=== PATIENT | male | born 1960 | race Two or more races ===

== ENCOUNTER 2019-07-18 21:47 | Inpatient (IN) | payer MEDICAID ==
[~2019-07-18] VITALS: Ht 182.9 cm; Wt 72.6 kg
--- NOTE | 2019-07-18 21:50 | NUR ---
ED Nurse Note: brought in by ambulance ap[facility] from [facility] c/o lethargy and congestion. per ems, pt spo2 77% at arrival. pt then placed on NRB with spo2 of 90%. pt is dnr. patient opens eyes spontaneously and withdraws to pain, oriented x0. presents with no acute distress. pt dressed in gown; attached to monitor; all safety measures met. pt is warm to touch. assesed temp; 103.6F rectal.
[2019-07-18] MEDS ORDERED: Acetaminophen 650 MG SUPP RECTAL ONE (22:00)
[2019-07-18] MEDS ORDERED: KEPPRA1000 MG ORAL (22:02)
[2019-07-18] MEDS ORDERED: PROTONIX40 MG ORAL (22:02)
[2019-07-18] MEDS ORDERED: ACETAMINOPHEN325 M1 ORAL (22:02)
[2019-07-18] MEDS ORDERED: ATORVASTATIN CA80 MG ORAL (22:02)
[2019-07-18] MEDS ORDERED: AMITRIPTYLINE75 MG ORAL (22:02)
[2019-07-18] MEDS ORDERED: RESTORIL15 MG ORAL (22:02)
[2019-07-18] MEDS ORDERED: ASPIRIN325 MG ORAL (22:02)
[2019-07-18] MEDS ORDERED: LOVENOX10 M4 SUBQ (22:02)
[2019-07-18] MEDS ORDERED: NAMENDA5 MG ORAL (22:02)
[2019-07-18] MEDS ORDERED: GABAPENTIN300 MG ORAL (22:02)
[2019-07-18] MEDS ORDERED: LOPRESSOR HCT1 EAC3 ORAL (22:02)
[2019-07-18] MEDS ORDERED: PLAVIX75 MG ORAL (22:02)
[2019-07-18] MEDS ORDERED: HUMULIN R100 UNIT/1 SUBQ (22:02)
[2019-07-18] MEDS ORDERED: TRAMADOL HCL50 MG ORAL (22:02)
[2019-07-18] MEDS ORDERED: METFORMIN HCL500 M1 ORAL (22:02)
--- NOTE | 2019-07-18 22:05 | Emergency Room Report ---
History of Present Illness General Chief Complaint: Altered Mental Status Source: Family Member, Medical Record, EMS Present Illness HPI This a 59-year-old male who has a history of CVA with left-sided weakness. He presents from care home with chief complaint of congestion and altered mental status. Onset for 1 to 2 days. No reported fever. Oxygenation was low. EMS, room air oxygenation was in the high 70 percentile. They placed him on nonrebreather. Patient appeared to be congested. Unable to get any history from this patient because of his condition. History is from EMS, care home note and family who called. Allergies: Coded Allergies: No Known Allergies (Unverified , 07/18/19) COVID-19 Screening Contact w/high risk pt: No Recent Travel to affected area: No Experienced COVID-19 symptoms?: Yes COVID-19 symptoms experienced: Flu-Like Symptoms Patient History Past Medical History: see triage record, old chart reviewed Past Surgical History: other Pertinent Family History: none Social History: Denies: smoking Immunizations: other Reviewed Nursing Documentation: PMH: Agreed; PSxH: Agreed Nursing Documentation-PMH Hx Hypertension: Yes - anemia, hyperlipidemia Hx Diabetes: Yes Hx Gastrointestinal Problems: Yes - GERD Hx Cerebrovascular Accident: Yes - encephalopathy Hx Seizures: Yes Review of Systems Respiratory: Reports: cough, shortness of breath All Other Systems: limited - Secondary to condition Physical Exam Vital Signs Date Time Temp Pulse Resp B/P (MAP) Pulse Ox O2 Delivery O2 Flow Rate FiO2 07/18/19 21:47 99.9 110 22 100/59 (73) 90 Non-Rebreather 15.0 Vitals with hypoxia and low-grade fever Sp02 EP Interpretation: abnormal General Appearance: moderate distress, Stupor Head: normocephalic, atraumatic Eyes: bilateral eye PERRL, bilateral eye EOMI ENT: dry mucus membranes Neck: full range of motion, supple, no meningismus Respiratory: chest non-tender, rhonchi Cardiovascular #1: regular rate, rhythm, no murmur Gastrointestinal: normal bowel sounds, non tender, no mass, no organomegaly, no bruit, non-distended Musculoskeletal: no lower extremity edema Neurologic: other - Left-sided weakness Procedures Critical Care Time Critical Care Time Critical care is mandated in this patient who presented with acute respiratory failure and sepsis. Patient also suspected with infection. Patient require my urgent intervention to attenuate the risks of respiratory and metabolic collapse which may lead to cardiovascular collapse and . Critical care time is 35 minutes excluding any reportable procedure. Critical care time included evaluation, multiple reevaluation, looking at old charts, interpreting laboratory and diagnostic data, discussing case with patient and family and consultants, and charting. Medical Decision Making Diagnostic Impression: Primary Impression: Suspected COVID-19 virus infection Additional Impressions: HCAP (healthcare-associated pneumonia) Sepsis Qualified Codes: A41.9 - Sepsis, unspecified organism; R65.20 - Severe sepsis without septic shock; N17.9 - Acute kidney failure, unspecified Respiratory failure with hypoxia Qualified Codes: J96.01 - Acute respiratory failure with hypoxia ARF (acute renal failure) Qualified Codes: N17.9 - Acute kidney failure, unspecified Dehydration Hyperglycemia due to type 2 diabetes mellitus Qualified Codes: E11.65 - Type 2 diabetes mellitus with hyperglycemia; Z79.4 - assisted (current) use of insulin ER Course Patient presents with respiratory distress and acute respiratory failure. He had a temperature of 103.6 rectally. Pulse oxing was very low. Chest x-ray is pretty unremarkable other than for mild bilateral interstitial infiltrates. Based on his symptoms and laboratory data, I suspect that he has COVID-19 respiratory viral infection. Nasal swab sent for confirmation. Wide spectrum antibiotics given for HCAP. Based on this patient pre-existing medical condition, prognosis is poor. I discussed the case with his family. I also discussed the case with Dr. Basilio who will admit. EKG Diagnostic Results Rate: tachycardiac Rhythm: NSR ST Segments: other - NSST changes Rhythm Strip Diag. Results EP Interpretation: yes Rate: 130 Rhythm: NSR, no PVC's, no ectopy Chest X-Ray Diagnostic Results Chest X-Ray Diagnostic Results : Chest X-Ray Ordered: Yes # of Views/Limited/Complete: 1 View Indication: Shortness of Breath EP Interpretation: Yes Interpretation: no effusion, no pneumothorax, other - b/l interstitial infiltrates Impression: Other - b/l interstitial infiltrates; atelectasis Electronically Signed by: Taurus Sheldon MD Last Vital Signs Date Time Temp Pulse Resp B/P (MAP) Pulse Ox O2 Delivery O2 Flow Rate FiO2 07/18/19 21:47 99.9 110 22 100/59 (73) 90 Non-Rebreather 15.0 Status: improved Disposition: ADMITTED INPATIENT Condition: Critical Taurus Sheldon MD Jul 18, 2019 22:04
[2019-07-18 22:30] VITALS: BP 100/59
--- NOTE | 2019-07-18 22:30 | NUR ---
ED Nurse Note: iv access established. blood, initial lactic, blood culture, flu vre cre mrsa covid19 swab, urine collected; sent down to lab. upon skin assessment, several skin tears noted but no pressure sores noted.
[2019-07-18 23:00] VITALS: BP 109/70
--- NOTE | 2019-07-18 23:14 | NUR ---
ED Nurse Note: imaging done at bedside
[2019-07-18] MEDS ORDERED: Cefepime HCl 1 GM in D5W 55 ML IVPB ONE (23:30)
[2019-07-18 23:37] LABS: ANION GAP 16 mmol/L (5-15); BLOOD UREA NITROGEN 63 mg/dL (7-18); CALCIUM 9.8 MG/DL (8.5-10.1); CARBON DIOXIDE 23 MMOL/L (21-32); CHLORIDE 111 MMOL/L (98-107); CREATININE 2.3 MG/DL (0.55-1.30); POTASSIUM 4.4 MMOL/L (3.5-5.1); SODIUM 150 MMOL/L (136-145)
[2019-07-18 23:38] LABS: BASOPHILS % (AUTO) 1.7 % (0.0-2.0); EOSINOPHILS % (AUTO) 0.1 % (0.0-3.0); HEMATOCRIT 47.9 % (42.0-52.0); HEMOGLOBIN 16.9 G/DL (14.2-18.0); LYMPHOCYTES % (AUTO) 25.4 % (20.0-45.0); MEAN CORPUSCULAR VOLUME 85 FL (80-99); MONOCYTES % (AUTO) 8.5 % (1.0-10.0); NEUTROPHILS % (AUTO) 64.3 % (45.0-75.0); PLATELET COUNT 271 K/UL (150-450); RED BLOOD COUNT 5.61 M/UL (4.70-6.10); RED CELL DISTRIBUTION WIDTH 11.6 % (11.6-14.8); WHITE BLOOD COUNT 17.6 K/UL (4.8-10.8)
[2019-07-18 23:39] LABS: APPEARANCE,URINE CLEAR; BILIRUBIN, URINE 2+ (NEGATIVE); GLUCOSE, URINE (UA) 2+ (NEGATIVE); KETONES,URINE 2+ (NEGATIVE); LEUKOCYTE ESTERASE ,URINE 1+ (NEGATIVE); NITRITE,URINE NEGATIVE (NEGATIVE); PH,URINE 5 (4.5-8.0); PROTEIN,URINE 3+ (NEGATIVE); UROBILINOGEN,URINE 4 MG/DL (0.0-1.0)
[2019-07-18 23:42] LABS: ALANINE AMINOTRANSFERASE 35 U/L (12-78); ALBUMIN 3.5 G/DL (3.4-5.0); ALBUMIN/GLOBULIN RATIO 0.6 (1.0-2.7); ALKALINE PHOSPHATASE 150 U/L (46-116); ASPARTATE AMINO TRANSFERASE 27 U/L (15-37); BILIRUBIN,TOTAL 0.4 MG/DL (0.2-1.0)
[2019-07-18 23:44] LABS: COLOR,URINE PALE YELLOW
--- NOTE | 2019-07-18 23:57 | NUR ---
ED Nurse Note: lactic reflex collected; sent down to lab. temp reassessed 101.8F rectal.
[2019-07-19] VITALS (9 sets, daily range): BP systolic 97–133; BP diastolic 68–90
[2019-07-19] MEDS ORDERED: Albuterol/Ipratropium 3ml neb HHN PRN
--- NOTE | 2019-07-19 00:01 | Emergency Room Report ---
Sepsis Event Note Evaluation Current Stage of Sepsis: Sepsis Possible Source: Pulmonary Focused Exam Allergies: Coded Allergies: No Known Allergies (Unverified , 07/18/19) Date Exam Occurred: Jul 19, 2019 Time Exam Occurred: 00:01 Laboratory Studies Laboratory Tests Test 07/18/19 21:55 07/18/19 23:21 White Blood Count 17.6 K/UL (4.8-10.8) H Red Blood Count 5.61 M/UL (4.70-6.10) Hemoglobin 16.9 G/DL (14.2-18.0) Hematocrit 47.9 % (42.0-52.0) Mean Corpuscular Volume 85 FL (80-99) Mean Corpuscular Hemoglobin 30.2 PG (27.0-31.0) Mean Corpuscular Hemoglobin Concent 35.3 G/DL (32.0-36.0) Red Cell Distribution Width 11.6 % (11.6-14.8) Platelet Count 271 K/UL (150-450) Mean Platelet Volume 8.7 FL (6.5-10.1) Neutrophils (%) (Auto) 64.3 % (45.0-75.0) Lymphocytes (%) (Auto) 25.4 % (20.0-45.0) Monocytes (%) (Auto) 8.5 % (1.0-10.0) Eosinophils (%) (Auto) 0.1 % (0.0-3.0) Basophils (%) (Auto) 1.7 % (0.0-2.0) Sodium Level 150 MMOL/L (136-145) H Potassium Level 4.4 MMOL/L (3.5-5.1) Chloride Level 111 MMOL/L (98-107) H Carbon Dioxide Level 23 MMOL/L (21-32) Anion Gap 16 mmol/L (5-15) H Blood Urea Nitrogen 63 mg/dL (7-18) H Creatinine 2.3 MG/DL (0.55-1.30) H Estimat Glomerular Filtration Rate 29.2 mL/min (>60) Glucose Level 323 MG/DL (74-106) H Lactic Acid Level 2.90 mmol/L (0.4-2.0) H Calcium Level 9.8 MG/DL (8.5-10.1) Total Bilirubin 0.4 MG/DL (0.2-1.0) Aspartate Amino Transf (AST/SGOT) 27 U/L (15-37) Alanine Aminotransferase (ALT/SGPT) 35 U/L (12-78) Alkaline Phosphatase 150 U/L (46-116) H Total Protein 8.9 G/DL (6.4-8.2) H Albumin 3.5 G/DL (3.4-5.0) Globulin 5.4 g/dL Albumin/Globulin Ratio 0.6 (1.0-2.7) L Urine Color Pale yellow Urine Appearance Clear Urine pH 5 (4.5-8.0) Urine Specific [place] 1.020 (1.005-1.035) Urine Protein 3+ (NEGATIVE) H Urine Glucose (UA) 2+ (NEGATIVE) H Urine Ketones 2+ (NEGATIVE) H Urine Blood Negative (NEGATIVE) Urine Nitrite Negative (NEGATIVE) Urine Bilirubin 2+ (NEGATIVE) H Urine Ictotest Pending Urine Urobilinogen 4 MG/DL (0.0-1.0) H Urine Leukocyte Esterase 1+ (NEGATIVE) H Urine RBC 0-2 /HPF (0 - 0) H Urine WBC 0-2 /HPF (0 - 0) Urine Squamous Epithelial Cells None /LPF (NONE/OCC) Urine Bacteria Few /HPF (NONE) Urine Fine Granular Casts 5-10 /LPF (NONE) H Vital Signs Last 24 Hour Vital Signs Date Time Temp Pulse Resp B/P (MAP) Pulse Ox O2 Delivery O2 Flow Rate FiO2 07/18/19 22:30 101.8 07/18/19 21:47 99.9 110 22 100/59 (73) 90 Non-Rebreather 15.0 Respiratory Exam: Rhonchi Cardiovascular Exam: RRR, Tachycardia Capillary Refill: Less Than 2 Seconds Peripheral Pulse: Strong Pulse Location: Radial Skin Exam: Unremarkable Taurus Sheldon MD Jul 19, 2019 00:01
--- NOTE | 2019-07-19 02:00 | NUR ---
ED Nurse Note: PATIENT SLEEPING IN BED WITH NO ACUTE DISTRESS. REPOSTIONED FOR COMFORT. RESPIRATIONS EVEN AND UNLABORED.
--- NOTE | 2019-07-19 03:00 | NUR ---
ED Nurse Note: TRANSFERRED PATIENT FROM ED [facility] TO [facility] BED. PT TOLERATED WELL; REMAINS FREE FROM INJURY. PATIENT RESTING IN BED WITH NO ACUTE DISTRESS. VSS. IV FLUSHED AND PATENT. SIDE RAILS RAISED X3; BED ALARM SET; BED LOCKED AT LOWEST POSITION.
--- NOTE | 2019-07-19 05:00 | NUR ---
ED Nurse Note: AM LABS DRAWN; SENT DOWN TO LAB. REPOSITIONED PATIENT FOR COMFORT; EASED PRESSURE OFF BONY PROMICES.
[2019-07-19 05:17] LABS: BASOPHILS % (AUTO) 1.1 % (0.0-2.0); EOSINOPHILS % (AUTO) 0.1 % (0.0-3.0); HEMATOCRIT 38.8 % (42.0-52.0); LYMPHOCYTES % (AUTO) 26.2 % (20.0-45.0); MEAN CORPUSCULAR VOLUME 87 FL (80-99); MONOCYTES % (AUTO) 9.8 % (1.0-10.0); NEUTROPHILS % (AUTO) 62.8 % (45.0-75.0); PLATELET COUNT 167 K/UL (150-450); RED BLOOD COUNT 4.48 M/UL (4.70-6.10); RED CELL DISTRIBUTION WIDTH 11.7 % (11.6-14.8); WHITE BLOOD COUNT 17.8 K/UL (4.8-10.8)
[2019-07-19 05:20] LABS: ANION GAP 16 mmol/L (5-15); BLOOD UREA NITROGEN 52 mg/dL (7-18); CALCIUM 8.2 MG/DL (8.5-10.1); CARBON DIOXIDE 20 MMOL/L (21-32); CHLORIDE 118 MMOL/L (98-107); CREATININE 1.6 MG/DL (0.55-1.30); POTASSIUM 3.8 MMOL/L (3.5-5.1); SODIUM 154 MMOL/L (136-145)
--- NOTE | 2019-07-19 06:05 | NUR ---
ED Nurse Note: PATIENT RESTING IN BED WITH NO ACUTE DISTRESS. RESPONDS TO NAME AND PRESENTS WITH PURPOSEFUL MOVEMENT; ABLE TO ANSWER QUESTIONS. AO2.
--- NOTE | 2019-07-19 07:12 | NUR ---
HAND-OFF: Report given to MILES BENJAMIN. ENDORSED PLAN OF CARE.
[2019-07-19] MEDS: Enoxaparin 40mg Inj SUBQ SCH (09:15)
[2019-07-19] MEDS ORDERED: traMADol 50mg tab ORAL PRN (09:30)
[2019-07-19] MEDS ORDERED: Cefepime 2gm IV SCH (11:00)
--- NOTE | 2019-07-19 11:18 | Diagnostic Imaging Report ---
Indication: Dyspnea Comparison: None A single view chest radiograph was obtained. Findings: Cardiomediastinal appearance is within normal limits for age. The lungs are clear. Pulmonary vascularity is appropriate. The diaphragmatic contour is smooth and costophrenic angles are sharp. No pleural effusions are identified. The bones are osteopenic. Impression: No acute findings
[2019-07-19] MEDS: NovoLOG Insulin Flexpen SUBQ SCH ×3 (11:30→20:58)
--- NOTE | 2019-07-19 11:53 | History and Physical ---
History of Present Illness General Date patient seen: Jul 19, 2019 Time patient seen: 10:20 Reason for Hospitalization: Altered Mental Status Present Illness HPI 59 y/o M known to me from [facility] where he is a resident since being admitted after a CVA with L sided hemiplegia as a sequelae. He has diabetes mellitus and takes insulin along with metformin, HTN, HLD, physical deconditioning. He was sent to the ED last night with fever and altered mental status. He was admitted to the hospital with leukocytosis, sepsis, started on isolation- droplet precautions, rule out COVID-19, and antibiotic therapy. Today, he is in moderate distress, fever has improved, his oxygenation requirements are less now with NC 2 lt and he is waiting for a FILIBERTO bed. Denies chest pain, shortness of breath, nausea, emesis, diarrhea, abdominal pain. Allergies: Coded Allergies: No Known Allergies (Unverified , 07/18/19) COVID-19 Screening Contact w/high risk pt: No Recent Travel to affected area: No Experienced COVID-19 symptoms?: Yes COVID-19 symptoms experienced: Flu-Like Symptoms Medication History Scheduled Amitriptyline HCl (Elavil*), 150 MG ORAL BEDTIME, (Reported) Aspirin* (Aspirin*), 325 MG ORAL DAILY, (Reported) Atorvastatin Calcium* (Lipitor*), 80 MG ORAL BEDTIME, (Reported) Clopidogrel Bisulfate* (Plavix*), 75 MG ORAL DAILY, (Reported) Enoxaparin* (Lovenox*), 40 MG SUBQ DAILY, (Reported) Gabapentin* (Gabapentin*), 300 MG ORAL THREE TIMES A DAY, (Reported) Levetiracetam (Keppra), 1,000 MG ORAL DAILY, (Reported) Memantine Hcl* (Namenda*), 5 MG ORAL DAILY, (Reported) Metformin Hcl* (Metformin Hcl*), 500 MG ORAL TWICE A DAY, (Reported) Metoprolol/Hydrochlorothiazide (Lopressor Hct 50-25 Tablet), 1 TAB ORAL DAILY, ( Reported) Pantoprazole* (Protonix*), 40 MG ORAL DAILY, (Reported) Scheduled PRN Acetaminophen* (Acetaminophen 325MG Tablet*), 325 MG ORAL Q4H PRN for For Pain, (Reported) Temazepam* (Restoril*), 15 MG ORAL BEDTIME PRN for Insomnia, (Reported) Tramadol Hcl* (Ultram*), 50 MG ORAL Q6H PRN for For Pain, (Reported) Miscellaneous Medications Insulin Regular, Human (Humulin R), 0 SUBQ, (Reported) Patient History Healthcare decision maker Resuscitation status Do Not Resuscitate Advanced Directive on File Review of Systems Constitutional: Reports: no symptoms Eye: Reports: no symptoms ENT: Reports: no symptoms Respiratory: Reports: no symptoms, shortness of breath Cardiovascular: Reports: no symptoms Gastrointestinal: Reports: no symptoms Genitourinary: Reports: no symptoms Musculoskeletal: Reports: no symptoms Skin: Reports: no symptoms Psychiatric: Reports: no symptoms Neurological: Reports: no symptoms Endocrine: Reports: no symptoms Hematologic/Lymphatic: Reports: no symptoms All Other Systems: negative except mentioned in HPI Physical Exam General Appearance: WD/WN Lines, tubes and drains: peripheral HEENT: normocephalic Neck: non-tender Respiratory/Chest: chest wall non-tender, lungs clear Abdomen: normal bowel sounds, non tender 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 Last 24 Hour Vital Signs Date Time Temp Pulse Resp B/P (MAP) Pulse Ox O2 Delivery O2 Flow Rate FiO2 07/19/19 10:14 110 19 123/76 100 Room Air 07/19/19 06:00 99.9 114 19 132/82 100 Room Air 15.0 07/19/19 04:00 99.9 116 19 104/75 98 Room Air 07/19/19 02:00 101.8 117 18 101/68 100 Room Air 07/19/19 00:00 101.8 129 22 97/73 100 Room Air 07/18/19 23:00 101.8 143 24 109/70 99 Room Air 07/18/19 22:30 101.8 135 22 100/59 98 Room Air 07/18/19 22:30 110 22 Non-Rebreather 15.0 07/18/19 22:30 101.8 07/18/19 21:47 99.9 110 22 100/59 (73) 90 Non-Rebreather 15.0 Laboratory Tests Test 07/18/19 12:40 07/18/19 21:55 07/18/19 23:21 07/19/19 05:10 Lactic Acid Level 2.80 mmol/L (0.66-2.22) H 2.90 mmol/L (0.4-2.0) H White Blood Count 17.6 K/UL (4.8-10.8) H 17.8 K/UL (4.8-10.8) H Red Blood Count 5.61 M/UL (4.70-6.10) 4.48 M/UL (4.70-6.10) L Hemoglobin 16.9 G/DL (14.2-18.0) 13.0 G/DL (14.2-18.0) L Hematocrit 47.9 % (42.0-52.0) 38.8 % (42.0-52.0) L Mean Corpuscular Volume 85 FL (80-99) 87 FL (80-99) Mean Corpuscular Hemoglobin 30.2 PG (27.0-31.0) 29.1 PG (27.0-31.0) Mean Corpuscular Hemoglobin Concent 35.3 G/DL (32.0-36.0) 33.6 G/DL (32.0-36.0) Red Cell Distribution Width 11.6 % (11.6-14.8) 11.7 % (11.6-14.8) Platelet Count 271 K/UL (150-450) 167 K/UL (150-450) Mean Platelet Volume 8.7 FL (6.5-10.1) 8.7 FL (6.5-10.1) Neutrophils (%) (Auto) 64.3 % (45.0-75.0) 62.8 % (45.0-75.0) Lymphocytes (%) (Auto) 25.4 % (20.0-45.0) 26.2 % (20.0-45.0) Monocytes (%) (Auto) 8.5 % (1.0-10.0) 9.8 % (1.0-10.0) Eosinophils (%) (Auto) 0.1 % (0.0-3.0) 0.1 % (0.0-3.0) Basophils (%) (Auto) 1.7 % (0.0-2.0) 1.1 % (0.0-2.0) Sodium Level 150 MMOL/L (136-145) H 154 MMOL/L (136-145) H Potassium Level 4.4 MMOL/L (3.5-5.1) 3.8 MMOL/L (3.5-5.1) Chloride Level 111 MMOL/L (98-107) H 118 MMOL/L (98-107) H Carbon Dioxide Level 23 MMOL/L (21-32) 20 MMOL/L (21-32) L Anion Gap 16 mmol/L (5-15) H 16 mmol/L (5-15) H Blood Urea Nitrogen 63 mg/dL (7-18) H 52 mg/dL (7-18) H Creatinine 2.3 MG/DL (0.55-1.30) H 1.6 MG/DL (0.55-1.30) H Estimat Glomerular Filtration Rate 29.2 mL/min (>60) 44.5 mL/min (>60) Glucose Level 323 MG/DL (74-106) H 287 MG/DL (74-106) H Calcium Level 9.8 MG/DL (8.5-10.1) 8.2 MG/DL (8.5-10.1) L Total Bilirubin 0.4 MG/DL (0.2-1.0) Aspartate Amino Transf (AST/SGOT) 27 U/L (15-37) Alanine Aminotransferase (ALT/SGPT) 35 U/L (12-78) Alkaline Phosphatase 150 U/L (46-116) H Total Protein 8.9 G/DL (6.4-8.2) H Albumin 3.5 G/DL (3.4-5.0) Globulin 5.4 g/dL Albumin/Globulin Ratio 0.6 (1.0-2.7) L Urine Color Pale yellow Urine Appearance Clear Urine pH 5 (4.5-8.0) Urine Specific [place] 1.020 (1.005-1.035) Urine Protein 3+ (NEGATIVE) H Urine Glucose (UA) 2+ (NEGATIVE) H Urine Ketones 2+ (NEGATIVE) H Urine Blood Negative (NEGATIVE) Urine Nitrite Negative (NEGATIVE) Urine Bilirubin 2+ (NEGATIVE) H Urine Ictotest Negative (NEGATIVE) Urine Urobilinogen 4 MG/DL (0.0-1.0) H Urine Leukocyte Esterase 1+ (NEGATIVE) H Urine RBC 0-2 /HPF (0 - 0) H Urine WBC 0-2 /HPF (0 - 0) Urine Squamous Epithelial Cells None /LPF (NONE/OCC) Urine Bacteria Few /HPF (NONE) Urine Fine Granular Casts 5-10 /LPF (NONE) H Hemoglobin A1c 8.9 % (4.3-6.0) H Microbiology Date/Time Source Procedure Growth Status 07/18/19 22:30 Nasal Nares - Final Complete 07/18/19 22:30 Nasal Nares - Final Complete 07/18/19 22:30 Rectum Received Height (Feet): 6 Height (Inches): 0.00 Weight (Pounds): 160 Medications Current Medications Medications (Trade) Dose Ordered Sig/Amy Route PRN Reason Start Time Stop Time Status Last Admin Dose Admin Acetaminophen (Tylenol) 650 mg Q4H PRN ORAL Mild Pain (Pain Scale 1-3) 07/19/19 00:00 08/18/19 00:00 Albuterol/ Ipratropium (Albuterol/ Ipratropium) 3 ml Q4H PRN HHN Shortness of Breath 07/19/19 00:00 07/24/19 00:00 Aspirin (ASA) 325 mg DAILY ORAL 07/20/19 09:00 09/03/19 08:59 UNV Atorvastatin Calcium (Lipitor) 80 mg BEDTIME ORAL 07/19/19 21:00 10/17/19 20:59 UNV Cefepime HCl 2 gm/ Dextrose 55 ml @ 110 mls/hr Q24H IV 07/19/19 14:00 07/26/19 13:59 Clopidogrel Bisulfate (Plavix) 75 mg DAILY ORAL 07/20/19 09:00 08/19/19 08:59 UNV Dextrose (Dextrose 50%) 25 ml Q30M PRN IV Hypoglycemia 07/19/19 00:00 10/17/19 00:00 Dextrose (Dextrose 50%) 50 ml Q30M PRN IV Hypoglycemia 07/19/19 00:00 10/17/19 00:00 Enoxaparin Sodium (Lovenox) 40 mg Q24H SUBQ 07/19/19 09:00 10/17/19 08:59 07/19/19 09:15 Gabapentin (Neurontin) 300 mg THREE TIMES A DAY ORAL 07/19/19 13:00 08/18/19 12:59 UNV Insulin Aspart (NovoLOG) BEFORE MEALS AND HS SUBQ 07/19/19 11:30 10/17/19 11:29 UNV Levetiracetam (Keppra) 1,000 mg DAILY ORAL 07/20/19 09:00 08/19/19 08:59 UNV Levofloxacin (Levaquin) 750 mg ONCE ONCE ORAL 07/19/19 00:00 07/19/19 00:01 UNV Memantine (Namenda) 5 mg DAILY ORAL 07/20/19 09:00 08/19/19 08:59 UNV Metformin HCl (Glucophage) 500 mg TWICE A DAY ORAL 07/19/19 18:00 08/18/19 17:59 UNV Ondansetron HCl (Zofran) 4 mg Q6H PRN IVP Nausea & Vomiting 07/19/19 00:00 08/18/19 00:00 Pantoprazole (Protonix) 40 mg DAILY ORAL 07/19/19 09:00 08/18/19 08:59 07/19/19 09:14 Sodium Chloride 1,000 ml @ 100 mls/hr ADJUST PER PROTOCOL IV 07/19/19 00:00 08/18/19 00:00 07/19/19 03:56 Temazepam (Restoril) 15 mg BEDTIME PRN ORAL Insomnia 07/19/19 00:00 07/26/19 00:00 Tramadol HCl (Ultram) 50 mg Q6H PRN ORAL For Pain 07/19/19 09:30 07/26/19 09:29 UNV Assessment/Plan Status: stable Assessment/Plan: 59 y/o M admitted to the Hospital due to altered mental status, fever and hypoxemic respiratory failure. # Sepsis Etiology most likely due to pneumonia, HCAP vs Viral pneumonia. Rule out Covid-19 due to high risk, SNF resident, fever, shortness of breath Continue Cefepime and Levaquin therapy. Pending MRSA swab, if positive consider adding Vancomycin HHN as needed Oxygen support Droplet isolation pending Covid result # Altered mental status Improved after treatment of fever and starting antibiotics Monitor # ZACHARY IVF given in the ED and continued with improvement in the creatinine noted today. Monitor I/O Avoid nephrotoxins Dose antibiotics by GFR # Hypernatremia 1/2 NS IVF started Monitor sodium Chronic problems # IDDM Continue HOMERO A1c #CVA L hemiplegia Supportive care, continue asa and plavix Fall precautions WC at baseline PT and OT when able to participate # HLD Continue statin # CODE STATUS DNR # DVT ppx with Enoxaparin # GI ppx with Protonix # Precautions: Droplet # Lines: Peripheral IV Vicente Basilio MD Jul 19, 2019 11:53
--- NOTE | 2019-07-19 12:31 | NUR ---
ED Nurse Note:pt. is resting, VSS, connected to merchandising intern, waiting for hospital room
--- NOTE | 2019-07-19 13:45 | NUR ---
ED Nurse Note:called report to SDU- given to dennis France. taken up stairs
[2019-07-19] MEDS ORDERED: Cefepime HCl 2 GM in D5W 55 ML IV SCH ×2 (14:00→16:00)
--- NOTE | 2019-07-19 14:00 | NUR ---
NURSE NOTES: Received report from SOURAV Jiménez @ ER. The patient came in for sepsis, respiratory failure, congestion, altered mental status, fever, and desaturation and from [facility]. Received admission order from Dr. Basilio. Notified Dr. Basilio regarding abnormal lab including WBC and lactic acid level. The patient does not have belongings brought from the retirement. Medical, surgical, allergy, and social history taken from the medical record. Admitting EKG and medication reconciliation completed. Swab for Influenza, VRE, CRE, MRSA, and COVID-19 completed at ER. Skin issue picture taken, uploaded pictures, and dressing changed. The patient has R AC 22G and L AC 22G SL intact and patent. The patient brought POLST and Dr. Basilio ordered the patient to be DNR and DNI. Dr. Garzon at the bedside assessed the patient and notified the patient's condition and abnormal lab. The patient's bed in the lowest position, call light in reach, and fall, aspiration, and seizure precaution reinforced. IV site intact and patent. Vital signs stable. Will continue plan of care.
--- NOTE | 2019-07-19 15:24 | Consultation ---
History of Present Illness General Date patient seen: Jul 19, 2019 Time patient seen: 16:28 Chief Complaint: Altered Mental Status Present Illness HPI 59yo gentleman with PMH below sent from [place] for fever and AMS. ID consulted for sepsis. Pt has history of CVA and history difficult to obtain due to dysarthria. Per EMS, pt was desatting on room and was placed on NRB. Pt currently is oriented to self and location(hospital). Denies chills, diaphoresis , cough, sob, abdominal pain, diarrhea. PMH: DM, HTN, dyslipidemia, CVA FHx: noncontributory SHx: denies cig, etoh, drug use. [facility] resident. Allergies: Coded Allergies: No Known Allergies (Unverified , 07/18/19) Medication History Scheduled Amitriptyline HCl (Elavil*), 150 MG ORAL BEDTIME, (Reported) Aspirin* (Aspirin*), 325 MG ORAL DAILY, (Reported) Atorvastatin Calcium* (Lipitor*), 80 MG ORAL BEDTIME, (Reported) Clopidogrel Bisulfate* (Plavix*), 75 MG ORAL DAILY, (Reported) Enoxaparin* (Lovenox*), 40 MG SUBQ DAILY, (Reported) Gabapentin* (Gabapentin*), 300 MG ORAL THREE TIMES A DAY, (Reported) Levetiracetam (Keppra), 1,000 MG ORAL DAILY, (Reported) Memantine Hcl* (Namenda*), 5 MG ORAL DAILY, (Reported) Metformin Hcl* (Metformin Hcl*), 500 MG ORAL TWICE A DAY, (Reported) Metoprolol/Hydrochlorothiazide (Lopressor Hct 50-25 Tablet), 1 TAB ORAL DAILY, ( Reported) Pantoprazole* (Protonix*), 40 MG ORAL DAILY, (Reported) Scheduled PRN Acetaminophen* (Acetaminophen 325MG Tablet*), 325 MG ORAL Q4H PRN for For Pain, (Reported) Temazepam* (Restoril*), 15 MG ORAL BEDTIME PRN for Insomnia, (Reported) Tramadol Hcl* (Ultram*), 50 MG ORAL Q6H PRN for For Pain, (Reported) Miscellaneous Medications Insulin Regular, Human (Humulin R), 0 SUBQ, (Reported) Patient History Healthcare decision maker Resuscitation status Do Not Resuscitate Advanced Directive on File Review of Systems All Other Systems: negative except mentioned in HPI Physical Exam Last 24 Hour Vital Signs Date Time Temp Pulse Resp B/P (MAP) Pulse Ox O2 Delivery O2 Flow Rate FiO2 07/19/19 14:30 99.2 113 18 121/83 (96) 100 07/19/19 13:27 99.9 110 18 126/90 100 Room Air 15.0 07/19/19 12:28 110 18 126/90 100 Room Air 07/19/19 10:14 110 19 123/76 100 Room Air 07/19/19 06:00 99.9 114 19 132/82 100 Room Air 15.0 07/19/19 04:00 99.9 116 19 104/75 98 Room Air 07/19/19 02:00 101.8 117 18 101/68 100 Room Air 07/19/19 00:00 101.8 129 22 97/73 100 Room Air 07/18/19 23:00 101.8 143 24 109/70 99 Room Air 07/18/19 22:30 101.8 135 22 100/59 98 Room Air 07/18/19 22:30 110 22 Non-Rebreather 15.0 07/18/19 22:30 101.8 07/18/19 21:47 99.9 110 22 100/59 (73) 90 Non-Rebreather 15.0 Laboratory Tests Test 07/18/19 21:55 07/18/19 23:21 07/19/19 05:10 White Blood Count 17.6 K/UL (4.8-10.8) H 17.8 K/UL (4.8-10.8) H Red Blood Count 5.61 M/UL (4.70-6.10) 4.48 M/UL (4.70-6.10) L Hemoglobin 16.9 G/DL (14.2-18.0) 13.0 G/DL (14.2-18.0) L Hematocrit 47.9 % (42.0-52.0) 38.8 % (42.0-52.0) L Mean Corpuscular Volume 85 FL (80-99) 87 FL (80-99) Mean Corpuscular Hemoglobin 30.2 PG (27.0-31.0) 29.1 PG (27.0-31.0) Mean Corpuscular Hemoglobin Concent 35.3 G/DL (32.0-36.0) 33.6 G/DL (32.0-36.0) Red Cell Distribution Width 11.6 % (11.6-14.8) 11.7 % (11.6-14.8) Platelet Count 271 K/UL (150-450) 167 K/UL (150-450) Mean Platelet Volume 8.7 FL (6.5-10.1) 8.7 FL (6.5-10.1) Neutrophils (%) (Auto) 64.3 % (45.0-75.0) 62.8 % (45.0-75.0) Lymphocytes (%) (Auto) 25.4 % (20.0-45.0) 26.2 % (20.0-45.0) Monocytes (%) (Auto) 8.5 % (1.0-10.0) 9.8 % (1.0-10.0) Eosinophils (%) (Auto) 0.1 % (0.0-3.0) 0.1 % (0.0-3.0) Basophils (%) (Auto) 1.7 % (0.0-2.0) 1.1 % (0.0-2.0) Sodium Level 150 MMOL/L (136-145) H 154 MMOL/L (136-145) H Potassium Level 4.4 MMOL/L (3.5-5.1) 3.8 MMOL/L (3.5-5.1) Chloride Level 111 MMOL/L (98-107) H 118 MMOL/L (98-107) H Carbon Dioxide Level 23 MMOL/L (21-32) 20 MMOL/L (21-32) L Anion Gap 16 mmol/L (5-15) H 16 mmol/L (5-15) H Blood Urea Nitrogen 63 mg/dL (7-18) H 52 mg/dL (7-18) H Creatinine 2.3 MG/DL (0.55-1.30) H 1.6 MG/DL (0.55-1.30) H Estimat Glomerular Filtration Rate 29.2 mL/min (>60) 44.5 mL/min (>60) Glucose Level 323 MG/DL (74-106) H 287 MG/DL (74-106) H Lactic Acid Level 2.90 mmol/L (0.4-2.0) H Calcium Level 9.8 MG/DL (8.5-10.1) 8.2 MG/DL (8.5-10.1) L Total Bilirubin 0.4 MG/DL (0.2-1.0) Aspartate Amino Transf (AST/SGOT) 27 U/L (15-37) Alanine Aminotransferase (ALT/SGPT) 35 U/L (12-78) Alkaline Phosphatase 150 U/L (46-116) H Total Protein 8.9 G/DL (6.4-8.2) H Albumin 3.5 G/DL (3.4-5.0) Globulin 5.4 g/dL Albumin/Globulin Ratio 0.6 (1.0-2.7) L Urine Color Pale yellow Urine Appearance Clear Urine pH 5 (4.5-8.0) Urine Specific [place] 1.020 (1.005-1.035) Urine Protein 3+ (NEGATIVE) H Urine Glucose (UA) 2+ (NEGATIVE) H Urine Ketones 2+ (NEGATIVE) H Urine Blood Negative (NEGATIVE) Urine Nitrite Negative (NEGATIVE) Urine Bilirubin 2+ (NEGATIVE) H Urine Ictotest Negative (NEGATIVE) Urine Urobilinogen 4 MG/DL (0.0-1.0) H Urine Leukocyte Esterase 1+ (NEGATIVE) H Urine RBC 0-2 /HPF (0 - 0) H Urine WBC 0-2 /HPF (0 - 0) Urine Squamous Epithelial Cells None /LPF (NONE/OCC) Urine Bacteria Few /HPF (NONE) Urine Fine Granular Casts 5-10 /LPF (NONE) H Hemoglobin A1c 8.9 % (4.3-6.0) H Microbiology Date/Time Source Procedure Growth Status 07/18/19 22:30 Nasal Nares - Final Complete 07/18/19 22:30 Nasal Nares - Final Complete 07/18/19 22:30 Rectum Received Height (Feet): 6 Height (Inches): 0.00 Weight (Pounds): 160 Medications Current Medications Medications (Trade) Dose Ordered Sig/Amy Route PRN Reason Start Time Stop Time Status Last Admin Dose Admin Acetaminophen (Tylenol) 650 mg Q4H PRN ORAL Mild Pain (Pain Scale 1-3) 07/19/19 00:00 08/18/19 00:00 Albuterol/ Ipratropium (Albuterol/ Ipratropium) 3 ml Q4H PRN HHN Shortness of Breath 07/19/19 00:00 07/24/19 00:00 Aspirin (ASA) 325 mg DAILY ORAL 07/20/19 09:00 09/03/19 08:59 Atorvastatin Calcium (Lipitor) 80 mg BEDTIME ORAL 07/19/19 21:00 10/17/19 20:59 Cefepime HCl 2 gm/ Dextrose 55 ml @ 110 mls/hr Q24H IV 07/19/19 16:00 07/26/19 15:59 Clopidogrel Bisulfate (Plavix) 75 mg DAILY ORAL 07/20/19 09:00 08/19/19 08:59 Dextrose (Dextrose 50%) 25 ml Q30M PRN IV Hypoglycemia 07/19/19 00:00 10/17/19 00:00 Dextrose (Dextrose 50%) 50 ml Q30M PRN IV Hypoglycemia 07/19/19 00:00 10/17/19 00:00 Enoxaparin Sodium (Lovenox) 40 mg Q24H SUBQ 07/19/19 09:00 10/17/19 08:59 07/19/19 09:15 Gabapentin (Neurontin) 300 mg THREE TIMES A DAY ORAL 07/19/19 13:00 08/18/19 12:59 Insulin Aspart (NovoLOG) BEFORE MEALS AND HS SUBQ 07/19/19 11:30 10/17/19 11:29 Levetiracetam (Keppra) 1,000 mg DAILY ORAL 07/20/19 09:00 08/19/19 08:59 Levofloxacin (Levaquin) 750 mg Q24H ORAL 07/19/19 23:00 07/25/19 22:59 Memantine (Namenda) 5 mg DAILY ORAL 07/20/19 09:00 08/19/19 08:59 Metformin HCl (Glucophage) 500 mg TWICE A DAY ORAL 07/19/19 18:00 08/18/19 17:59 Ondansetron HCl (Zofran) 4 mg Q6H PRN IVP Nausea & Vomiting 07/19/19 00:00 08/18/19 00:00 Pantoprazole (Protonix) 40 mg DAILY ORAL 07/19/19 09:00 08/18/19 08:59 07/19/19 09:14 Sodium Chloride 1,000 ml @ 100 mls/hr ADJUST PER PROTOCOL IV 07/19/19 00:00 08/18/19 00:00 07/19/19 14:44 Temazepam (Restoril) 15 mg BEDTIME PRN ORAL Insomnia 07/19/19 00:00 07/26/19 00:00 Tramadol HCl (Ultram) 50 mg Q6H PRN ORAL For Pain (SCALE >3) 07/19/19 09:30 07/26/19 09:29 Objective Narrative Gen: NAD. calm. well nourished. well hydrated. HEENT: normocephalic. anicteric sclera. neck supple. CV: RRR. no rubs or gallop. S1+S2. Resp: RRR. unlabored. equal chest rise. rhonchi. Abd: normoactive BS+. Soft. no TTP. No rebound. no guarding. Ext: no LE edema. no cyanosis. no clubbing. Neuro: AAO. follows commands. answers questions appropriately. Psych: nonlabile. affect is mood congruent. Skin: bruises and scabs Assessment/Plan Assessment/Plan: Fever RA Leukocytosis Sepsis Cough and congestion CAP r/o COVID 19 Flu swab negative CXR: No acute findings r/o bacteremia f/u Bcx Unlikely UTI UA negative [place] resident--[facility] DM HTN Dyslipidemia Plan: continue Cefepime #2 and Levaquin #2 f/u COVID19 f/u bcx f/u MRSA screen sputum culture monitor temp and CBC monitor resp status isolation precaution DAMON RN and primary Thank you for this consult. [facility] will continue to follow the patient with you. Raza Garzon MD Jul 19, 2019 15:24
--- NOTE | 2019-07-19 16:00 | NUR ---
NURSE NOTES: The patient is stable without acute distress or shortness of breath. Will continue plan of care.
[2019-07-19] MEDS: metFORMIN 500mg tab ORAL SCH (17:43)
--- NOTE | 2019-07-19 19:10 | NUR ---
NURSE NOTES: Received patient and report from SOURAV Montiel. Patient is observed resting in bed and remains alert and oriented x1-2. Periods of confusion/disorientation noted. No pain noted upon assessment. Pt is on 2L NC with no s/sx of acute distress. Pt noted to be SR on tele monitor with a current HR of 116 with no s/sx of acute distress. R AC 22g and L AC 22g IV catheters noted which remains asymptomatic, patent and intact. 1/2 NS currently infusing as prescribed. Skin alterations noted. Diagnostics reviewed. Pt remains resting in bed; Bed remains in the lowest position with the safety wheels engaged, call light within reach, side rails up x3 and bed alarm activated. Will continue plan of care. Will continue to monitor.
--- NOTE | 2019-07-19 19:30 | NUR ---
HAND-OFF: Report given to SOURAV Suarez. The patient is resting on the bed without acute distress or shortness of breath. The patient's bed in the lowest position, call light in reach, and fall and aspiration precaution reinforced. IV site intact and patent. Endorsed plan of care.
[2019-07-19] MEDS: Atorvastatin 80mg tab ORAL SCH (20:44)
[2019-07-19] MEDS ORDERED: Levofloxacin 750mg tab ORAL SCH (23:00)
--- NOTE | 2019-07-19 23:33 | NUR ---
NURSE NOTES: Pt provided with a bed bath, oral care and linen change. Pt tolerated care well. Pt interested in eating remainder of dinner. Pt fed and aspiration precautions observed. Pt remains resting in bed; Bed remains in the lowest position with the safety wheels engaged, call light within reach, side rails up x3 and bed alarm activated. Will continue plan of care. Will continue to monitor.
[2019-07-20] VITALS: BP 122/82
--- NOTE | 2019-07-20 03:13 | NUR ---
NURSE NOTES: [facility] regarding eMAR-"per protocol" will await call back Will continue to monitor patient
[2019-07-20 04:00] VITALS: BP 119/84
--- NOTE | 2019-07-20 04:24 | NUR ---
NURSE NOTES: Spoke with pharmacist at [facility] who advised me to continue 1/2NS as ordered and disregard "adjust per protocol" notation.
--- NOTE | 2019-07-20 04:36 | NUR ---
NURSE NOTES: Morning lab draw performed at bedside without incident. Attempted to collect sputum for culture, pt declines at this time. Will reattempt.
[2019-07-20 05:34] LABS: BASOPHILS % (AUTO) 0.7 % (0.0-2.0); EOSINOPHILS % (AUTO) 1.5 % (0.0-3.0); HEMATOCRIT 37.3 % (42.0-52.0); HEMOGLOBIN 12.7 G/DL (14.2-18.0); LYMPHOCYTES % (AUTO) 20.1 % (20.0-45.0); MEAN CORPUSCULAR VOLUME 85 FL (80-99); MONOCYTES % (AUTO) 5.7 % (1.0-10.0); PLATELET COUNT 173 K/UL (150-450); RED BLOOD COUNT 4.37 M/UL (4.70-6.10); RED CELL DISTRIBUTION WIDTH 11.7 % (11.6-14.8); WHITE BLOOD COUNT 16.9 K/UL (4.8-10.8)
[2019-07-20 05:55] LABS: ALANINE AMINOTRANSFERASE 37 U/L (12-78); ALBUMIN 2.7 G/DL (3.4-5.0); ALBUMIN/GLOBULIN RATIO 0.7 (1.0-2.7); ALKALINE PHOSPHATASE 115 U/L (46-116); ANION GAP 14 mmol/L (5-15); ASPARTATE AMINO TRANSFERASE 25 U/L (15-37); BILIRUBIN,TOTAL 0.4 MG/DL (0.2-1.0); BLOOD UREA NITROGEN 27 mg/dL (7-18); CALCIUM 8.9 MG/DL (8.5-10.1); CARBON DIOXIDE 22 MMOL/L (21-32); CHLORIDE 118 MMOL/L (98-107); CREATININE 0.9 MG/DL (0.55-1.30); POTASSIUM 3.4 MMOL/L (3.5-5.1); SODIUM 154 MMOL/L (136-145)
[2019-07-20] MEDS: NovoLOG Insulin Flexpen SUBQ SCH ×4 (06:06→21:00)
--- NOTE | 2019-07-20 06:56 | NUR ---
NURSE NOTES: Called to report AM lab values. Will await call back. Will continue to monitor.
--- NOTE | 2019-07-20 07:15 | NUR ---
HAND-OFF: Report given to SOURAV Guerrero. Pt remains stable at this time.
--- NOTE | 2019-07-20 07:25 | NUR ---
NURSE NOTES: Received report from Bernardino Swift RN. Patient alert and oriented to name, confused, unable to follow commands and make needs known. Receiving O2 via nasal cannula @ 2L/min, no s/s of respiratory distress noted. Condom catheter in place. Left AC 22g IV site infusing 1/2NS @ 100 cc/hr, no s/s of infiltration noted. Right AC 22g saline lock patent and asymptomatic. Bed locked in lowest position with padded side rails up x 3. All needs attended to. Call light within reach. Bed alarm on. Will continue to monitor.
--- NOTE | 2019-07-20 07:30 | NUR ---
NURSE NOTES: Dr. Basilio notified of last lactic acid result of 2.9 and K 3.4. Received order for lactic acid draw and KCl 20 meq IV x 1.
[2019-07-20] MEDS ORDERED: Sodium Chloride for KCL Premix X 1hr IV SCH (07:45)
[2019-07-20 08:00] VITALS: BP 143/86
--- NOTE | 2019-07-20 09:11 | General Progress Note ---
Assessment/Plan Status: stable Assessment/Plan: 59 y/o M admitted to the Hospital due to altered mental status, fever and hypoxemic respiratory failure. # Sepsis Etiology most likely due to pneumonia, HCAP vs Viral pneumonia. Rule out Covid-19 due to high risk, SNF resident, fever, shortness of breath Continue Cefepime and Levaquin therapy. ID consultation appreciated by Dr. Garzon and defer antibiotic management. Blood cx with G + cocci in clusters reported. Pending MRSA swab, if positive consider adding Vancomycin HHN as needed Oxygen support Droplet isolation pending Covid result # Altered mental status Improved after treatment of fever and starting antibiotics Monitor # ZACHARY IVF improved creatinine Monitor I/O Avoid nephrotoxins Dose antibiotics by GFR # Hypernatremia 1/2 NS IVF started will be changed to D5W today. Monitor sodium, BMP this afternoon. Chronic problems # IDDM Continue HOMERO A1c #CVA L hemiplegia Supportive care, continue asa and plavix Fall precautions WC at baseline PT and OT when able to participate # HLD Continue statin # CODE STATUS DNR # DVT ppx with Enoxaparin # GI ppx with Protonix # Precautions: Droplet # Lines: Peripheral IV Subjective Date patient seen: Jul 20, 2019 Time patient seen: 08:50 ROS Limited/Unobtainable: Yes Respiratory: Reports: shortness of breath Allergies: Coded Allergies: No Known Allergies (Unverified , 07/18/19) Objective Last 24 Hour Vital Signs Date Time Temp Pulse Resp B/P (MAP) Pulse Ox O2 Delivery O2 Flow Rate FiO2 07/20/19 04:00 Room Air 07/20/19 04:00 2.0 07/20/19 04:00 98.1 115 16 119/84 (96) 97 07/20/19 03:02 115 07/20/19 00:00 2.0 07/20/19 00:00 Room Air 07/20/19 00:00 98.8 113 18 122/82 (95) 98 07/19/19 23:03 116 07/19/19 20:00 Room Air 07/19/19 20:00 97.8 116 16 133/85 (101) 99 07/19/19 20:00 2.0 07/19/19 19:07 118 07/19/19 18:22 Room Air 07/19/19 16:00 98.2 116 18 120/80 (93) 100 07/19/19 16:00 115 07/19/19 16:00 Room Air 07/19/19 14:30 99.2 113 18 121/83 (96) 100 07/19/19 14:21 112 07/19/19 14:00 Room Air 07/19/19 13:27 99.9 110 18 126/90 100 Room Air 15.0 07/19/19 12:28 110 18 126/90 100 Room Air 07/19/19 10:14 110 19 123/76 100 Room Air Intake and Output 07/19/19 07/20/19 19:00 07:00 Intake Total 600 ml 1405.33 ml Output Total 500 ml 500 ml Balance 100 ml 905.33 ml Intake Oral 500 ml 242 ml IV Total 100 ml 1163.33 ml Output Urine Total 500 ml 500 ml Laboratory Tests 07/19/19 15:28: Arterial Blood pH 7.372, Arterial Blood Partial Pressure CO2 35.1, Arterial Blood Partial Pressure O2 73.7L, Arterial Blood HCO3 19.9L, Arterial Blood Oxygen Saturation 95.0, Arterial Blood Base Excess -4.6L, Valeriy Test Positive 07/20/19 05:00: White Blood Count 16.9H, Red Blood Count 4.37L, Hemoglobin 12.7L, Hematocrit 37.3L, Mean Corpuscular Volume 85, Mean Corpuscular Hemoglobin 29.0, Mean Corpuscular Hemoglobin Concent 34.0, Red Cell Distribution Width 11.7, Platelet Count 173, Mean Platelet Volume 9.9, Neutrophils (%) (Auto) 72.0, Lymphocytes (% ) (Auto) 20.1, Monocytes (%) (Auto) 5.7, Eosinophils (%) (Auto) 1.5, Basophils ( %) (Auto) 0.7, Sodium Level 154H, Potassium Level 3.4L, Chloride Level 118H, Carbon Dioxide Level 22, Anion Gap 14, Blood Urea Nitrogen 27H, Creatinine 0.9, Estimat Glomerular Filtration Rate > 60, Glucose Level 115#H, Calcium Level 8.9 , Total Bilirubin 0.4, Aspartate Amino Transf (AST/SGOT) 25, Alanine Aminotransferase (ALT/SGPT) 37, Alkaline Phosphatase 115, Total Protein 6.7, Albumin 2.7L, Globulin 4.0, Albumin/Globulin Ratio 0.7L Height (Feet): 6 Height (Inches): 0.00 Weight (Pounds): 160 General Appearance: WD/WN EENT: PERRL/EOMI Cardiovascular: normal rate Respiratory/Chest: lungs clear, normal breath sounds Neurologic: physician representative II-XII grossly normal Vicente Basilio MD Jul 20, 2019 09:11
[2019-07-20] MEDS: Memantine 10mg tab ORAL SCH (09:29)
[2019-07-20] MEDS: metFORMIN 500mg tab ORAL SCH ×3 (09:29→18:00)
[2019-07-20] MEDS: Enoxaparin 40mg Inj SUBQ SCH (09:33)
--- NOTE | 2019-07-20 09:53 | Infectious Diseases Prog Note ---
Assessment/Plan Assessment/Plan Fever, improving RA/2L NC Leukocytosis Sepsis Cough and congestion CAP r/o COVID 19 Flu swab negative CXR: No acute findings r/o bacteremia vs contamination BCx: GPC clusters Unlikely UTI UA negative [place] resident--[facility] DM HTN Dyslipidemia Plan: continue Cefepime #3...DC levaquin #3 and start doxycycline #1 f/u COVID19 f/u MRSA screen sputum culture monitor temp and CBC monitor resp status isolation precaution f/u GPC speciation repeat bcx DW RN Thank you for this consult. [facility] will continue to follow the patient with you. Subjective Allergies: Coded Allergies: No Known Allergies (Unverified , 07/18/19) Subjective Fever curve improving. on 2L NC. reports cough Objective Vital Signs Last 24 Hour Vital Signs Date Time Temp Pulse Resp B/P (MAP) Pulse Ox O2 Delivery O2 Flow Rate FiO2 07/20/19 04:00 Room Air 07/20/19 04:00 2.0 07/20/19 04:00 98.1 115 16 119/84 (96) 97 07/20/19 03:02 115 07/20/19 00:00 2.0 07/20/19 00:00 Room Air 07/20/19 00:00 98.8 113 18 122/82 (95) 98 07/19/19 23:03 116 07/19/19 20:00 Room Air 07/19/19 20:00 97.8 116 16 133/85 (101) 99 07/19/19 20:00 2.0 07/19/19 19:07 118 07/19/19 18:22 Room Air 07/19/19 16:00 98.2 116 18 120/80 (93) 100 07/19/19 16:00 115 07/19/19 16:00 Room Air 07/19/19 14:30 99.2 113 18 121/83 (96) 100 07/19/19 14:21 112 07/19/19 14:00 Room Air 07/19/19 13:27 99.9 110 18 126/90 100 Room Air 15.0 07/19/19 12:28 110 18 126/90 100 Room Air 07/19/19 10:14 110 19 123/76 100 Room Air Height (Feet): 6 Height (Inches): 0.00 Weight (Pounds): 160 Objective Gen: NAD. CV: RRR. no rubs or gallop. S1+S2. Resp: RRR. unlabored. equal chest rise. rhonchi. Abd: normoactive BS+. Soft. no TTP. No rebound. no guarding. Microbiology Date/Time Source Procedure Growth Status 07/18/19 22:45 Blood Blood Culture - Preliminary Resulted 07/18/19 22:30 Blood Blood Culture - Preliminary NO GROWTH AFTER 24 HOURS Resulted 07/18/19 22:30 Nasal Nares - Final Complete 07/18/19 22:30 Nasal Nares - Final Complete 07/18/19 22:30 Rectum Received Laboratory Tests Test 07/19/19 15:28 07/20/19 05:00 Arterial Blood pH 7.372 (7.350-7.450) Arterial Blood Partial Pressure CO2 35.1 mmHg (35.0-45.0) Arterial Blood Partial Pressure O2 73.7 mmHg (75.0-100.0) L Arterial Blood HCO3 19.9 mmol/L (22.0-26.0) L Arterial Blood Oxygen Saturation 95.0 % (95-100) Arterial Blood Base Excess -4.6 (-2-2) L Valeriy Test Positive White Blood Count 16.9 K/UL (4.8-10.8) H Red Blood Count 4.37 M/UL (4.70-6.10) L Hemoglobin 12.7 G/DL (14.2-18.0) L Hematocrit 37.3 % (42.0-52.0) L Mean Corpuscular Volume 85 FL (80-99) Mean Corpuscular Hemoglobin 29.0 PG (27.0-31.0) Mean Corpuscular Hemoglobin Concent 34.0 G/DL (32.0-36.0) Red Cell Distribution Width 11.7 % (11.6-14.8) Platelet Count 173 K/UL (150-450) Mean Platelet Volume 9.9 FL (6.5-10.1) Neutrophils (%) (Auto) 72.0 % (45.0-75.0) Lymphocytes (%) (Auto) 20.1 % (20.0-45.0) Monocytes (%) (Auto) 5.7 % (1.0-10.0) Eosinophils (%) (Auto) 1.5 % (0.0-3.0) Basophils (%) (Auto) 0.7 % (0.0-2.0) Sodium Level 154 MMOL/L (136-145) H Potassium Level 3.4 MMOL/L (3.5-5.1) L Chloride Level 118 MMOL/L (98-107) H Carbon Dioxide Level 22 MMOL/L (21-32) Anion Gap 14 mmol/L (5-15) Blood Urea Nitrogen 27 mg/dL (7-18) H Creatinine 0.9 MG/DL (0.55-1.30) Estimat Glomerular Filtration Rate > 60 mL/min (>60) Glucose Level 115 MG/DL (74-106) #H Calcium Level 8.9 MG/DL (8.5-10.1) Total Bilirubin 0.4 MG/DL (0.2-1.0) Aspartate Amino Transf (AST/SGOT) 25 U/L (15-37) Alanine Aminotransferase (ALT/SGPT) 37 U/L (12-78) Alkaline Phosphatase 115 U/L (46-116) Total Protein 6.7 G/DL (6.4-8.2) Albumin 2.7 G/DL (3.4-5.0) L Globulin 4.0 g/dL Albumin/Globulin Ratio 0.7 (1.0-2.7) L Current Medications Medications (Trade) Dose Ordered Sig/Amy Route PRN Reason Start Time Stop Time Status Last Admin Dose Admin Acetaminophen (Tylenol) 650 mg Q4H PRN ORAL Mild Pain (Pain Scale 1-3) 07/19/19 00:00 08/18/19 00:00 Albuterol/ Ipratropium (Albuterol/ Ipratropium) 3 ml Q4H PRN HHN Shortness of Breath 07/19/19 00:00 07/24/19 00:00 Aspirin (ASA) 325 mg DAILY ORAL 07/20/19 09:00 09/03/19 08:59 07/20/19 09:29 Atorvastatin Calcium (Lipitor) 80 mg BEDTIME ORAL 07/19/19 21:00 10/17/19 20:59 07/19/19 20:44 Cefepime HCl 2 gm/ Dextrose 55 ml @ 110 mls/hr Q24H IV 07/19/19 16:00 07/26/19 15:59 07/19/19 15:37 Clopidogrel Bisulfate (Plavix) 75 mg DAILY ORAL 07/20/19 09:00 08/19/19 08:59 07/20/19 09:29 Dextrose 1,000 ml @ 100 mls/hr Q10H IV 07/20/19 09:15 08/19/19 09:14 07/20/19 09:30 Dextrose (Dextrose 50%) 25 ml Q30M PRN IV Hypoglycemia 07/19/19 00:00 10/17/19 00:00 Dextrose (Dextrose 50%) 50 ml Q30M PRN IV Hypoglycemia 07/19/19 00:00 10/17/19 00:00 Enoxaparin Sodium (Lovenox) 40 mg Q24H SUBQ 07/19/19 09:00 10/17/19 08:59 07/20/19 09:33 Gabapentin (Neurontin) 300 mg THREE TIMES A DAY ORAL 07/19/19 13:00 08/18/19 12:59 07/20/19 09:29 Insulin Aspart (NovoLOG) BEFORE MEALS AND HS SUBQ 07/19/19 11:30 10/17/19 11:29 07/19/19 20:58 Levetiracetam (Keppra) 1,000 mg DAILY ORAL 07/20/19 09:00 08/19/19 08:59 07/20/19 09:29 Levofloxacin (Levaquin) 750 mg Q24H ORAL 07/19/19 23:00 07/25/19 22:59 07/19/19 22:20 Memantine (Namenda) 5 mg DAILY ORAL 07/20/19 09:00 08/19/19 08:59 07/20/19 09:29 Metformin HCl (Glucophage) 500 mg TWICE A DAY ORAL 07/19/19 18:00 08/18/19 17:59 07/20/19 09:29 Ondansetron HCl (Zofran) 4 mg Q6H PRN IVP Nausea & Vomiting 07/19/19 00:00 08/18/19 00:00 Pantoprazole (Protonix) 40 mg DAILY ORAL 07/19/19 09:00 08/18/19 08:59 07/20/19 09:29 Potassium Chloride 100 ml @ 100 mls/hr Q1H IVPB 07/20/19 09:30 07/20/19 11:29 07/20/19 09:29 Temazepam (Restoril) 15 mg BEDTIME PRN ORAL Insomnia 07/19/19 00:00 07/26/19 00:00 Tramadol HCl (Ultram) 50 mg Q6H PRN ORAL For Pain (SCALE >3) 07/19/19 09:30 07/26/19 09:29 Raza Garzon MD Jul 20, 2019 09:53
--- NOTE | 2019-07-20 10:51 | NUR ---
RD ASSESSMENT & RECOMMENDATIONS SEE CARE ACTIVITY FOR COMPLETE ASSESSMENT DAILY ESTIMATED NEEDS: Needs based on Wound, sepsis, 69kg 25-35 kcals/kg 9308-2190 total kcals 1.25-2 g protein/kg 86-138 g total protein 25-30 mL/kg 1675-7059 total fluid mLs NUTRITION DIAGNOSIS: Increased kcal and pro needs r/t sepsis, wound healing, and wasting as evidenced by tmax 101.8, elev WBC, multiple wounds, eval pending, w/ BL LE moderate wasting. CURRENT DIET: Low Na, ms ground PO DIET RECOMMENDATIONS: With fair po intake-> Rec LIBERALIZED Regular diet (texture per POWER AND RECOVERY SUPERVISOR) ADDITIONAL RECOMMENDATIONS: 1) Add Glucerna TID w/ meals 2) Per SNF: 69 inches tall, 152 lbs 3) 1:1 feeds as able 4) No artificial feeds per POLST 5) Wound care: add KATIE BID (f/up w/ WC eval)
--- NOTE | 2019-07-20 11:25 | NUR ---
*-* INSURANCE *-* ALL AVAILABLE CLINICALS HAVE BEEN FAXED TO: [facility] Ref#[id number] DANAY; Jalyn [phone] ext [phone] fax# [phone] & [facility] ph#[phone] fax#[phone] Addendum: 07/20/19 at 1131 by WHIT MORGAN CM *-* INSURANCE *-* ALL AVAILABLE CLINICALS HAVE BEEN FAXED TO: [facility] Ref#[id number] DANAY; Jalyn ph [phone] ext [phone] fax# [phone] & [facility] ref# [id number] ph#[phone] fax#[phone]
[2019-07-20 12:00] VITALS: BP 131/90
[2019-07-20] MEDS: Cefepime HCl 2 GM in D5W 55 ML IV SCH (12:32)
--- NOTE | 2019-07-20 12:32 | NUR ---
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 101.8 HR 129 RR 24 B/P 100/79 WBC 17.6 LACTID ACID 2.80 NA 150 AGAP 16 BUN 63 CR 2.3 UA+ PROTEIN,GLUCOSE,BLOOD,LEUKOCYTE ESTERASE,RBC CXR= NEG IS: IV BOLUS NS X 3 LITERS CEFEPIME IV LEVAQUIN IV TYLENOL PO ADMITTED TO STEP DOWN STEP DOWN STATUS [facility]CP PENDING HOSPITAL STAY
--- NOTE | 2019-07-20 14:00 | NUR ---
NURSE NOTES: WOUND CARE NOTES:Pt presented on admission with multiple pressure injuries.Partial thickness pressure injury cleft of L ear . Base of wound is moist and viable. Non-blanching erythema L ear . Unstageable pressure injury R earlobe.Base of wound is necrotic and dry. Edges adherent to base of wound.(L)1cm x (W)1.4cm.Periwound is pink . Full thickness pressure injury R thoracic(L)3.5cm x (W)2.2cm. Base of wound is 80% aisha,moist ,20% slough. Edges flat,pink and adherent to base of wound. No erythema or evidence of further skin breakdown periwound. DTPI R elbow. Base of injury is maroon and fluctuant.(L)6cm x (W)4cm. Non-blanching erythema without induration or fluctuance L elbow. Multiple dry scabs noted to both lower ext. Wound irma R tibia. Base of wound has 100% thick yellow fibrin that is dry. Edges are adherent with marginal erythema.(L)6cm x (W)2.1cm. DTPI R heel-Blood filled blister with non-blanching erythema and fluctuance periwound.(L)3.5cm x (W)4.5cm. L heel is boggy with non-blanching erythema. Tx.Plan:Cleanse wound upper R back with Saline. Apply Therahoney. Apply Cavilon Skin Barrier periwound. Cover with Optifoam drsg. Change every 3 days and prn. Apply Cavilon Skin Barrier to both elbows. Cover each elbow with Optifoam drsg. Change every 7 days and prn. Apply Betadine to R earlobe. Cover with Optifoam drsg. Change every 3 days and prn. Apply Betadine to R tibia . Cover with Optifoam drsg. Change every 3 days and prn. Apply Betadine to R heel. Cover with Optifoam drsg. Change every 3 days and prn. Apply Cavilon SKin Barrier to L heel. Cover with Optifoam drsg. Change every 7 days and prn. Reposition at least every 2hours or as tolerated. Off-load heels with pillow. APM/GEORGE Mattress overlay.
[2019-07-20 16:00] VITALS: BP 133/82
--- NOTE | 2019-07-20 19:13 | NUR ---
HAND-OFF: Report given to Sandra Sism RN, using SBAR.
--- NOTE | 2019-07-20 19:14 | NUR ---
NURSE NOTES: Got report from Yolanda BENJAMIN. Pt in stable condition. Denies any pain. No s/s of distress or discomfort noted. Pt resting in bed comfortably. Bed in low andl locked position, call light within reach, bedside table within reach. Continue to monitor.
[2019-07-20 20:00] VITALS: BP 129/78
[2019-07-20] MEDS: Doxycycline Monohydrate 100mg ORAL SCH (21:14)
[2019-07-20] MEDS: Atorvastatin 80mg tab ORAL SCH (21:14)
[2019-07-21] VITALS: BP 145/85
[2019-07-21] MEDS: Cefepime HCl 2 GM in D5W 55 ML IV SCH ×2 (01:00→14:37)
[2019-07-21 04:00] VITALS: BP 144/76
[2019-07-21] MEDS: NovoLOG Insulin Flexpen SUBQ SCH ×4 (06:30→22:06)
[2019-07-21 06:57] LABS: EOSINOPHILS % (AUTO) 1.7 % (0.0-3.0); HEMATOCRIT 32.1 % (42.0-52.0); HEMOGLOBIN 11.1 G/DL (14.2-18.0); LYMPHOCYTES % (AUTO) 24.1 % (20.0-45.0); MEAN CORPUSCULAR VOLUME 84 FL (80-99); MONOCYTES % (AUTO) 4.9 % (1.0-10.0); NEUTROPHILS % (AUTO) 68.3 % (45.0-75.0); PLATELET COUNT 159 K/UL (150-450); RED BLOOD COUNT 3.81 M/UL (4.70-6.10); RED CELL DISTRIBUTION WIDTH 11.2 % (11.6-14.8); WHITE BLOOD COUNT 14.8 K/UL (4.8-10.8)
--- NOTE | 2019-07-21 07:20 | NUR ---
HAND-OFF: Report given to Jamil BENJAMIN.
--- NOTE | 2019-07-21 07:20 | NUR ---
NURSE NOTES: RECEIVED BED SIDE REPORT FROM NEGAR BENJAMIN OF [employer]. RECEIVED PT ON ISOLATION ROOM R/O COVID-19 .PT AWAKE AND ALERT X2 CAMEROONIAN AND CROATIAN SPEAKING ,ABLE TO FALLOWS COMMANDS. PT REPOSITIONED IN BED ,FULL BODY ASSESSMENT DONE.NSR NOTED AND FIRE BOSS. NO ACUTE DISTRESS NOTED AT THIS TIME. WILL CONT TO MONITOR.
[2019-07-21 07:42] LABS: ALANINE AMINOTRANSFERASE 28 U/L (12-78); ALBUMIN 2.3 G/DL (3.4-5.0); ALBUMIN/GLOBULIN RATIO 0.6 (1.0-2.7); ALKALINE PHOSPHATASE 117 U/L (46-116); ANION GAP 13 mmol/L (5-15); ASPARTATE AMINO TRANSFERASE 21 U/L (15-37); BILIRUBIN,TOTAL 0.3 MG/DL (0.2-1.0); BLOOD UREA NITROGEN 12 mg/dL (7-18); CALCIUM 8.8 MG/DL (8.5-10.1); CARBON DIOXIDE 18 MMOL/L (21-32); CHLORIDE 111 MMOL/L (98-107); CREATININE 0.6 MG/DL (0.55-1.30); POTASSIUM 3.5 MMOL/L (3.5-5.1); SODIUM 142 MMOL/L (136-145)
[2019-07-21 08:00] VITALS: BP 128/90
--- NOTE | 2019-07-21 08:00 | NUR ---
NURSE NOTES:RECEIVED LAB REPORT FROM KATHY BENJAMIN DIRECTOR REGARDING COVID-19 RESULT IS NEGATIVE .RASHI RN PLACED A TELEPHONE CALL TO DR PEREZ AND MADE HIM AWARE AND NOTIFIED REGARDING COVID-19 IS NEGATIVE ,NOT DETECTED. RASHI RECEIVED A TO FROM DR PEREZ TO D/C ISOLATION. WILL CONT TO MONITOR.
[2019-07-21] MEDS: Memantine 10mg tab ORAL SCH (09:16)
[2019-07-21] MEDS: Doxycycline Monohydrate 100mg ORAL SCH ×2 (09:17→22:36)
[2019-07-21] MEDS: metFORMIN 500mg tab ORAL SCH ×2 (09:17→17:40)
[2019-07-21] MEDS: Enoxaparin 40mg Inj SUBQ SCH (09:24)
--- NOTE | 2019-07-21 10:19 | General Progress Note ---
Assessment/Plan Status: stable Assessment/Plan: 59 y/o M admitted to the Hospital due to altered mental status, fever and hypoxemic respiratory failure. # Sepsis Etiology most likely due to pneumonia, HCAP vs Viral pneumonia. Rule out Covid-19 reported NEGATIVE today. Continue Cefepime, Levaquin and Doxycycline per ID ID consultation appreciated by Dr. Garzon and defer antibiotic management. Blood cx with G + cocci in clusters reported. Repeat Bcx ordered and not reported. HHN as needed Oxygen support Discontinued droplet isolation. Transfer to Med Surg floor. # Altered mental status Improved after treatment of fever and starting antibiotics Monitor # ZACHARY IVF improved creatinine Monitor I/O Avoid nephrotoxins Dose antibiotics by GFR # Hypernatremia Improving. Adjust IVF Chronic problems # IDDM Continue HOMERO A1c #CVA L hemiplegia Supportive care, continue asa and plavix Fall precautions WC at baseline PT and OT when able to participate, will order. # HLD Continue statin # CODE STATUS DNR # DVT ppx with Enoxaparin # GI ppx with Protonix # Precautions: Fall due to hemiplegia # Lines: Peripheral IV Subjective Date patient seen: Jul 21, 2019 Time patient seen: 10:00 ROS Limited/Unobtainable: Yes Respiratory: Reports: shortness of breath Allergies: Coded Allergies: No Known Allergies (Unverified , 07/18/19) All Systems: reviewed and negative except above Objective Last 24 Hour Vital Signs Date Time Temp Pulse Resp B/P (MAP) Pulse Ox O2 Delivery O2 Flow Rate FiO2 07/21/19 08:00 98.2 113 18 128/90 (103) 92 07/21/19 04:14 2.0 07/21/19 04:14 Nasal Cannula 2.0 07/21/19 04:00 98.0 100 18 144/76 (98) 95 07/21/19 04:00 112 07/21/19 00:03 Nasal Cannula 2.0 07/21/19 00:00 97.7 111 18 145/85 (105) 96 07/21/19 00:00 107 07/20/19 20:23 96 Nasal Cannula 2.0 28 07/20/19 20:21 92 18 22 Nasal Cannula 2.0 28 07/20/19 20:00 2.0 07/20/19 20:00 102 07/20/19 20:00 Nasal Cannula 2.0 07/20/19 20:00 98.0 108 18 129/78 (95) 95 07/20/19 16:00 97.8 99 18 133/82 (99) 94 07/20/19 16:00 2.0 07/20/19 16:00 Nasal Cannula 2.0 07/20/19 15:54 98 07/20/19 12:00 106 07/20/19 12:00 2.0 07/20/19 12:00 Nasal Cannula 2.0 07/20/19 12:00 97.8 104 18 131/90 (104) 95 Intake and Output 07/20/19 07/21/19 18:59 06:59 Intake Total 580 ml Output Total 600 ml 700 ml Balance -20 ml -700 ml Intake Oral 480 ml IV Total 100 ml Output Urine Total 600 ml 700 ml Laboratory Tests 07/21/19 06:00: White Blood Count 14.8H, Red Blood Count 3.81L, Hemoglobin 11.1L, Hematocrit 32.1L, Mean Corpuscular Volume 84, Mean Corpuscular Hemoglobin 29.2, Mean Corpuscular Hemoglobin Concent 34.6, Red Cell Distribution Width 11.2L, Platelet Count 159, Mean Platelet Volume 9.9, Neutrophils (%) (Auto) 68.3, Lymphocytes (%) (Auto) 24.1, Monocytes (%) (Auto) 4.9, Eosinophils (%) (Auto) 1.7, Basophils (%) (Auto) 1.0, Sodium Level 142, Potassium Level 3.5, Chloride Level 111H, Carbon Dioxide Level 18L, Anion Gap 13, Blood Urea Nitrogen 12, Creatinine 0.6, Estimat Glomerular Filtration Rate > 60, Glucose Level 169H, Lactic Acid Level 0.70, Calcium Level 8.8, Total Bilirubin 0.3, Aspartate Amino Transf (AST/SGOT) 21, Alanine Aminotransferase (ALT/SGPT) 28, Alkaline Phosphatase 117H, Total Protein 6.3L, Albumin 2.3L, Globulin 4.0, Albumin/ Globulin Ratio 0.6L Height (Feet): 6 Height (Inches): 0.00 Weight (Pounds): 160 General Appearance: WD/WN EENT: PERRL/EOMI Cardiovascular: normal rate, regular rhythm Respiratory/Chest: chest wall non-tender, decreased breath sounds Abdomen: normal bowel sounds, non tender Neurologic: other - hemiparesis Vicente Basilio MD Jul 21, 2019 10:19
--- NOTE | 2019-07-21 10:20 | NUR ---
NURSE NOTES: TRANSFER PT VIA BED ON STABLE CONDITION AND REPORT GIVEN TO ANSLEY SENIOR SHIPPING CLERK OF [facility].
--- NOTE | 2019-07-21 10:25 | NUR ---
NURSE NOTES: patient was transferred from SDU placed to room 419-[address] Basilio care. negative COVID -19. episode of coughing during care. sleeping but easily arousal. no respiratory distress on 2L via NC. no facial grimacing noted. IV on LAC22. RAC 22. intact. bed in the lowest poisition an locked. call light within reach. will continue to provide plan of care.
[2019-07-21] MEDS ORDERED: 1/2NS w/KCl 20mEq 1000ml 1,000 ML IV SCH (11:00)
[2019-07-21 12:00] VITALS: BP 123/73
[2019-07-21] MEDS ORDERED: Albuterol/Ipratropium 3ml neb HHN PRN (12:00)
--- NOTE | 2019-07-21 14:04 | NUR ---
TENNIS DIRECTORESTIMATOR AND DRAFTER SUPERVISOR SI: RESP FAILURE, SEPSIS T. 98.0 HR 113 RR 20 B/P 123/73 2L NC O2 SAT @ 99% WBC 14.8 ALK PHOS 117 IS: IVF NS @ 75ML/HR ALB KATHEN SCOTT MED/SURG STATUS
[2019-07-21] MEDS: 1/2NS w/KCl 20mEq 1000ml 1,000 ML IV SCH (14:37)
--- NOTE | 2019-07-21 15:32 | NUR ---
*-* INSURANCE *-* ALL AVAILABLE CLINICALS HAVE BEEN FAXED TO: [facility] Ref#[id number] DANAY; Jalyn [phone] fax# [phone] & [facility] ph#[phone] fax#[phone] Addendum: 07/20/19 at 1131 by WHIT MORGAN CM *-* INSURANCE *-* ALL AVAILABLE CLINICALS HAVE BEEN FAXED TO: [facility] Ref#[id number] DANAY; Jalyn ph [phone] fax# [phone] & [facility] ref# [id number] ph#[phone] fax#[phone]
[2019-07-21 16:00] VITALS: BP 113/61
--- NOTE | 2019-07-21 17:56 | Infectious Diseases Prog Note ---
Assessment/Plan Assessment/Plan Fever, improving RA/2L NC Leukocytosis, improving Sepsis Cough and congestion CAP Flu swab negative CXR: No acute findings YOSEF-CoV negative CoNS 04/24 BCx, likely contaminant Unlikely UTI UA negative [place] resident--[facility] DM HTN Dyslipidemia Plan: continue Cefepime #4/ and doxycycline #2/5 07/19 SP levaquion #3 sputum culture monitor temp and CBC monitor resp status isolation precaution f/u repeat bcx DW RN Thank you for this consult. [facility] will continue to follow the patient with you. Subjective Allergies: Coded Allergies: No Known Allergies (Unverified , 07/18/19) Subjective Afebrile. 2l NC. WBC better. Objective Vital Signs Last 24 Hour Vital Signs Date Time Temp Pulse Resp B/P (MAP) Pulse Ox O2 Delivery O2 Flow Rate FiO2 07/21/19 16:00 Nasal Cannula 2.0 07/21/19 16:00 97.4 101 20 113/61 (78) 99 07/21/19 12:00 Nasal Cannula 2.0 07/21/19 12:00 98.0 110 20 123/73 (90) 99 07/21/19 09:00 2.0 07/21/19 08:00 113 07/21/19 08:00 Nasal Cannula 2.0 07/21/19 08:00 98.2 113 18 128/90 (103) 92 07/21/19 04:14 2.0 07/21/19 04:14 Nasal Cannula 2.0 07/21/19 04:00 98.0 100 18 144/76 (98) 95 07/21/19 04:00 112 07/21/19 00:03 Nasal Cannula 2.0 07/21/19 00:00 97.7 111 18 145/85 (105) 96 07/21/19 00:00 107 07/20/19 20:23 96 Nasal Cannula 2.0 28 07/20/19 20:21 92 18 22 Nasal Cannula 2.0 28 07/20/19 20:00 2.0 07/20/19 20:00 102 07/20/19 20:00 Nasal Cannula 2.0 07/20/19 20:00 98.0 108 18 129/78 (95) 95 Height (Feet): 6 Height (Inches): 0.00 Weight (Pounds): 160 Objective Gen: NAD. calm. CV: RRR. no rubs or gallop. S1+S2. Resp: RRR. unlabored. equal chest rise. rhonchi. Abd: normoactive BS+. Soft. no TTP. Microbiology Date/Time Source Procedure Growth Status 07/18/19 22:45 Blood Blood Culture - Preliminary Staphylococcus Sp Coag Neg Resulted 07/18/19 22:30 Blood Blood Culture - Preliminary NO GROWTH AFTER 48 HOURS Resulted 07/18/19 22:30 Nasal Nares MRSA Culture - Final NO METHICILLIN RESISTANT STAPH AUREUS... Complete 07/18/19 22:30 Nasal Nares - Final Complete 07/18/19 22:30 Nasal Nares - Final Complete 07/18/19 22:30 Nasopharynx Coronavirus COVID-19 PCR (MADIE) - Final Complete 07/18/19 22:30 Rectum VRE Culture - Final NO VANCOMYCIN RESISTANT ENTEROCOCCUS ... Complete Laboratory Tests Test 07/21/19 06:00 White Blood Count 14.8 K/UL (4.8-10.8) H Red Blood Count 3.81 M/UL (4.70-6.10) L Hemoglobin 11.1 G/DL (14.2-18.0) L Hematocrit 32.1 % (42.0-52.0) L Mean Corpuscular Volume 84 FL (80-99) Mean Corpuscular Hemoglobin 29.2 PG (27.0-31.0) Mean Corpuscular Hemoglobin Concent 34.6 G/DL (32.0-36.0) Red Cell Distribution Width 11.2 % (11.6-14.8) L Platelet Count 159 K/UL (150-450) Mean Platelet Volume 9.9 FL (6.5-10.1) Neutrophils (%) (Auto) 68.3 % (45.0-75.0) Lymphocytes (%) (Auto) 24.1 % (20.0-45.0) Monocytes (%) (Auto) 4.9 % (1.0-10.0) Eosinophils (%) (Auto) 1.7 % (0.0-3.0) Basophils (%) (Auto) 1.0 % (0.0-2.0) Sodium Level 142 MMOL/L (136-145) Potassium Level 3.5 MMOL/L (3.5-5.1) Chloride Level 111 MMOL/L (98-107) H Carbon Dioxide Level 18 MMOL/L (21-32) L Anion Gap 13 mmol/L (5-15) Blood Urea Nitrogen 12 mg/dL (7-18) Creatinine 0.6 MG/DL (0.55-1.30) Estimat Glomerular Filtration Rate > 60 mL/min (>60) Glucose Level 169 MG/DL (74-106) H Lactic Acid Level 0.70 mmol/L (0.4-2.0) Calcium Level 8.8 MG/DL (8.5-10.1) Total Bilirubin 0.3 MG/DL (0.2-1.0) Aspartate Amino Transf (AST/SGOT) 21 U/L (15-37) Alanine Aminotransferase (ALT/SGPT) 28 U/L (12-78) Alkaline Phosphatase 117 U/L (46-116) H Total Protein 6.3 G/DL (6.4-8.2) L Albumin 2.3 G/DL (3.4-5.0) L Globulin 4.0 g/dL Albumin/Globulin Ratio 0.6 (1.0-2.7) L Current Medications Medications (Trade) Dose Ordered Sig/Amy Route PRN Reason Start Time Stop Time Status Last Admin Dose Admin Acetaminophen (Tylenol) 650 mg Q4H PRN ORAL Mild Pain (Pain Scale 1-3) 07/21/19 12:00 08/18/19 00:00 Albuterol/ Ipratropium (Albuterol/ Ipratropium) 3 ml Q4H PRN HHN Shortness of Breath 07/21/19 12:00 07/24/19 00:00 Aspirin (ASA) 325 mg DAILY ORAL 07/22/19 09:00 09/03/19 08:59 Atorvastatin Calcium (Lipitor) 80 mg BEDTIME ORAL 07/21/19 21:00 10/17/19 20:59 Cefepime HCl 2 gm/ Dextrose 55 ml @ 110 mls/hr Q12H IV 07/21/19 13:00 07/27/19 12:59 07/21/19 14:37 Clopidogrel Bisulfate (Plavix) 75 mg DAILY ORAL 07/22/19 09:00 08/19/19 08:59 Dextrose (Dextrose 50%) 25 ml Q30M PRN IV Hypoglycemia 07/21/19 11:30 10/17/19 00:00 Dextrose (Dextrose 50%) 50 ml Q30M PRN IV Hypoglycemia 07/21/19 11:30 10/17/19 00:00 Doxycycline Monohydrate (Doxycycline Monohydrate) 100 mg EVERY 12 HOURS ORAL 07/21/19 21:00 07/27/19 20:59 Enoxaparin Sodium (Lovenox) 40 mg Q24H SUBQ 07/22/19 09:00 10/17/19 08:59 Gabapentin (Neurontin) 300 mg THREE TIMES A DAY ORAL 07/21/19 13:00 08/18/19 12:59 07/21/19 17:42 Insulin Aspart (NovoLOG) BEFORE MEALS AND HS SUBQ 07/21/19 11:30 10/17/19 11:29 07/21/19 16:30 Levetiracetam (Keppra) 1,000 mg DAILY ORAL 07/22/19 09:00 08/19/19 08:59 Memantine (Namenda) 5 mg DAILY ORAL 07/22/19 09:00 08/19/19 08:59 Metformin HCl (Glucophage) 500 mg TWICE A DAY ORAL 07/21/19 18:00 08/18/19 17:59 07/21/19 17:40 Ondansetron HCl (Zofran) 4 mg Q6H PRN IVP Nausea & Vomiting 07/21/19 12:00 08/18/19 00:00 Pantoprazole (Protonix) 40 mg DAILY ORAL 07/22/19 09:00 08/18/19 08:59 Sodium 1,000 ml @ 75 mls/hr [id number] IV 07/21/19 11:30 08/20/19 10:59 07/21/19 14:37 Temazepam (Restoril) 15 mg BEDTIME PRN ORAL Insomnia 07/21/19 21:00 07/26/19 00:00 Tramadol HCl (Ultram) 50 mg Q6H PRN ORAL For Pain (SCALE >3) 07/21/19 11:45 07/26/19 11:44 Raza Garzon MD Jul 21, 2019 17:56
--- NOTE | 2019-07-21 19:19 | NUR ---
HAND-OFF: Report given to Glenda Quiles RN.
--- NOTE | 2019-07-21 19:20 | NUR ---
NURSE NOTES: Patient in bed, awake and alert x2. On nasal cannula with no signs of distress or SOB. IV intact and running IVF as ordered. Condom catheter in place and draining well. Bed locked and in lowest position. Bed alarm on. Call light in reach. Will continue to monitor the patient.
[2019-07-21 20:00] VITALS: BP 108/72
[2019-07-21] MEDS: Atorvastatin 80mg tab ORAL SCH (22:34)
[2019-07-21] MEDS: traMADol 50mg tab ORAL PRN (22:36)
[2019-07-22] VITALS: BP 126/73
[2019-07-22] MEDS: Cefepime HCl 2 GM in D5W 55 ML IV SCH ×2 (02:30→13:00)
[2019-07-22 04:00] VITALS: BP 109/78
[2019-07-22] MEDS: 1/2NS w/KCl 20mEq 1000ml 1,000 ML IV SCH (05:00)
[2019-07-22] MEDS: NovoLOG Insulin Flexpen SUBQ SCH ×4 (05:34→21:00)
[2019-07-22 06:08] LABS: BASOPHILS % (AUTO) 0.8 % (0.0-2.0); EOSINOPHILS % (AUTO) 1.3 % (0.0-3.0); HEMATOCRIT 30.5 % (42.0-52.0); HEMOGLOBIN 10.5 G/DL (14.2-18.0); LYMPHOCYTES % (AUTO) 27.8 % (20.0-45.0); MEAN CORPUSCULAR VOLUME 84 FL (80-99); MONOCYTES % (AUTO) 5.5 % (1.0-10.0); NEUTROPHILS % (AUTO) 64.6 % (45.0-75.0); PLATELET COUNT 179 K/UL (150-450); RED BLOOD COUNT 3.62 M/UL (4.70-6.10); RED CELL DISTRIBUTION WIDTH 11.2 % (11.6-14.8); WHITE BLOOD COUNT 11.8 K/UL (4.8-10.8)
[2019-07-22 06:29] LABS: ANION GAP 11 mmol/L (5-15); BLOOD UREA NITROGEN 9 mg/dL (7-18); CALCIUM 8.7 MG/DL (8.5-10.1); CARBON DIOXIDE 23 MMOL/L (21-32); CHLORIDE 110 MMOL/L (98-107); CREATININE 0.7 MG/DL (0.55-1.30); POTASSIUM 3.5 MMOL/L (3.5-5.1); SODIUM 144 MMOL/L (136-145)
--- NOTE | 2019-07-22 07:54 | NUR ---
HAND-OFF: Report given to SOURAV Cisneros.
[2019-07-22 08:00] VITALS: BP 116/74
--- NOTE | 2019-07-22 08:06 | NUR ---
NURSE NOTES: pt is in the bed alert and awake. respiration is even and unlabored. denies any pain and discomfort. HOB elevated. IV fluids inplace and running. site intact. no acute distress noted at this time. call light is within reach, will continue to follow plan of care.
[2019-07-22] MEDS: Enoxaparin 40mg Inj SUBQ SCH (09:25)
[2019-07-22] MEDS: metFORMIN 500mg tab ORAL SCH ×2 (09:26→17:47)
[2019-07-22] MEDS: Memantine 10mg tab ORAL SCH (09:26)
[2019-07-22] MEDS: Doxycycline Monohydrate 100mg ORAL SCH ×2 (09:27→21:31)
[2019-07-22 12:00] VITALS: BP 106/71
--- NOTE | 2019-07-22 12:55 | NUR ---
P.T Note: P.T evaluation completed and tx initiated. Please refer to P.T evaluation for full report. Pt is alert, oriented to only to self, confused however follows simple one steps commands. Pt is limited by residual weakness/paralysis on LUE/LE from Hx of CVA , generalized weakness and cognitive issue. Pt currently requires MAX A and constant verbal and manual cues for bed mobility tasks and total A to maintain upright sitting position at the EOB. Pt not able to stand and transfer at this time. Pt. denied c/o pain during entire P.T evaluation/tx. Pt will benefit from skilled P.T services to improve his strength and balance to increase mobility independence. Recommend DC to prior living arrangement at [place]. Thank you for this referral.
--- NOTE | 2019-07-22 13:16 | NUR ---
RD ASSESSMENT & RECOMMENDATIONS SEE CARE ACTIVITY FOR COMPLETE ASSESSMENT DAILY ESTIMATED NEEDS: Needs based on Wound, sepsis, 69kg 25-35 kcals/kg 1314-6452 total kcals 1.25-2 g protein/kg 86-138 g total protein 25-30 mL/kg 2454-5952 total fluid mLs NUTRITION DIAGNOSIS: Increased kcal and pro needs r/t sepsis, wound healing, and wasting as evidenced by tmax 101.8, elev WBC, multiple wounds, refer to WC eval, w/ BL LE moderate wasting. CURRENT DIET: Low Na, ms ground PO DIET RECOMMENDATIONS: With fair po intake-> Rec LIBERALIZED Regular diet (texture per COOKIE MIXER HELPER) ADDITIONAL RECOMMENDATIONS: 1) Add Ensure TID w/ meals; Rec Glucerna w/ elev BG 2) Per SNF: 69 inches tall, 152 lbs 3) 1:1 feeds as able 4) No artificial feeds per POLST 5) Wound care: add KATIE BID + Vit C 250mg BID + MVI w/ Min qd
--- NOTE | 2019-07-22 13:35 | NUR ---
*-* INSURANCE *-* ALL AVAILABLE CLINICALS HAVE BEEN FAXED TO: [facility] Ref#[id number] ; Jalyn [phone] fax# [phone] & [facility] ref# [id number] #[phone] fax#[phone]
--- NOTE | 2019-07-22 13:37 | General Progress Note ---
Assessment/Plan Status: stable Assessment/Plan: 59 y/o M admitted to the Hospital due to altered mental status, fever and hypoxemic respiratory failure. # Sepsis Etiology most likely due to UTI Rule out Covid-19 NEGATIVE Continue Cefepime, Levaquin and Doxycycline per ID ID consultation appreciated by Dr. Garzon and defer antibiotic management. Blood cx with G + cocci in clusters reported, likely contaminant. HHN as needed Oxygen support Med Surg floor. # Altered mental status Improved after treatment of fever and starting antibiotics Monitor # ZACHARY IVF improved creatinine Monitor I/O Avoid nephrotoxins Dose antibiotics by GFR # Hypernatremia Resolved. Chronic problems # IDDM Continue HOMERO A1c #CVA L hemiplegia Supportive care, continue asa and plavix Fall precautions WC at baseline PT and OT as tolerated. # HLD Continue statin # CODE STATUS DNR # DVT ppx with Enoxaparin # GI ppx with Protonix # Precautions: Fall due to hemiplegia # Lines: Peripheral IV Subjective Date patient seen: Jul 22, 2019 Time patient seen: 12:00 ROS Limited/Unobtainable: No Constitutional: Reports: malaise, weakness Allergies: Coded Allergies: No Known Allergies (Unverified , 07/18/19) All Systems: reviewed and negative except above Subjective Patient feels depressed. Reports loosing family members recently. Interested in psychiatric medications. Objective Last 24 Hour Vital Signs Date Time Temp Pulse Resp B/P (MAP) Pulse Ox O2 Delivery O2 Flow Rate FiO2 07/22/19 12:00 97.5 89 20 106/71 (83) 98 07/22/19 09:00 Nasal Cannula 2.0 07/22/19 08:00 97.7 104 19 116/74 (88) 96 07/22/19 07:00 96 Nasal Cannula 2.0 28 07/22/19 07:00 104 18 96 Nasal Cannula 2.0 28 07/22/19 04:00 99.3 113 20 109/78 (88) 93 07/22/19 00:00 98.6 114 20 126/73 (90) 93 07/21/19 20:01 99 18 95 Nasal Cannula 2.0 28 07/21/19 20:01 95 Nasal Cannula 2.0 28 07/21/19 20:00 Nasal Cannula 2.0 07/21/19 20:00 98.8 112 18 108/72 (84) 94 07/21/19 16:00 Nasal Cannula 2.0 07/21/19 16:00 97.4 101 20 113/61 (78) 99 Intake and Output 07/21/19 07/22/19 19:00 07:00 Intake Total 420 ml 240 ml Output Total 1300 ml 650 ml Balance -880 ml -410 ml Intake Oral 120 ml 240 ml IV Total 300 ml Output Urine Total 1300 ml 650 ml Laboratory Tests 07/22/19 05:25: White Blood Count 11.8H, Red Blood Count 3.62L, Hemoglobin 10.5L, Hematocrit 30.5L, Mean Corpuscular Volume 84, Mean Corpuscular Hemoglobin 28.9, Mean Corpuscular Hemoglobin Concent 34.4, Red Cell Distribution Width 11.2L, Platelet Count 179, Mean Platelet Volume 9.9, Neutrophils (%) (Auto) 64.6, Lymphocytes (%) (Auto) 27.8, Monocytes (%) (Auto) 5.5, Eosinophils (%) (Auto) 1.3, Basophils (%) (Auto) 0.8, Sodium Level 144, Potassium Level 3.5, Chloride Level 110H, Carbon Dioxide Level 23, Anion Gap 11, Blood Urea Nitrogen 9, Creatinine 0.7, Estimat Glomerular Filtration Rate > 60, Glucose Level 107H, Calcium Level 8.7 Height (Feet): 6 Height (Inches): 0.00 Weight (Pounds): 160 General Appearance: WD/WN EENT: PERRL/EOMI, normal ENT inspection Neck: normal alignment Cardiovascular: normal rate Respiratory/Chest: lungs clear Abdomen: non tender Extremities: other - left hemiplegia Neurologic: wearing apparel assembler II-XII grossly normal Vicente Basilio MD Jul 22, 2019 13:37
[2019-07-22 16:00] VITALS: BP 117/71
--- NOTE | 2019-07-22 16:12 | NUR ---
CASE MANAGEMENT:REVIEW SI;UTI. SEPSIS. RESPIRATORY FAILURE. 99.6 114 20 109/78 93% 2L NC WBC 11.8 IS; CEFEPIME IV Q12 HRS DUO NEB HHN Q4 HRS PEN NA IV DOXYCYCLINE PO Q12 HRS PROTONIX PO QD LOVENOX SUBQ QD PLAVIX PO QD ASA PO QD KEPPRA PO QD MED SURG STATUS DCP;FROM ANAIS PEREZ
--- NOTE | 2019-07-22 18:04 | Infectious Diseases Prog Note ---
Assessment/Plan Assessment/Plan Fever, improving RA/2L NC Leukocytosis, improving Sepsis, improving Cough and congestion CAP Flu swab negative CXR: No acute findings YOSEF-CoV negative CoNS 04/24 BCx, likely contaminant Unlikely UTI UA negative [place] resident--[facility] DM HTN Dyslipidemia Plan: continue Cefepime #/ and doxycycline #3/5 07/19 SP levaquion #3 sputum culture monitor temp and CBC monitor resp status isolation precaution f/u repeat bcx DW RN Thank you for this consult. [facility] will continue to follow the patient with you. Subjective Allergies: Coded Allergies: No Known Allergies (Unverified , 07/18/19) Subjective Afebrile. 2l NC. WBC better. states he feels better Objective Vital Signs Last 24 Hour Vital Signs Date Time Temp Pulse Resp B/P (MAP) Pulse Ox O2 Delivery O2 Flow Rate FiO2 07/22/19 16:00 98.1 103 18 117/71 (86) 95 07/22/19 12:00 97.5 89 20 106/71 (83) 98 07/22/19 09:00 Nasal Cannula 2.0 07/22/19 08:00 97.7 104 19 116/74 (88) 96 07/22/19 07:00 96 Nasal Cannula 2.0 28 07/22/19 07:00 104 18 96 Nasal Cannula 2.0 28 07/22/19 04:00 99.3 113 20 109/78 (88) 93 07/22/19 00:00 98.6 114 20 126/73 (90) 93 07/21/19 20:01 99 18 95 Nasal Cannula 2.0 28 07/21/19 20:01 95 Nasal Cannula 2.0 28 07/21/19 20:00 Nasal Cannula 2.0 07/21/19 20:00 98.8 112 18 108/72 (84) 94 Height (Feet): 6 Height (Inches): 0.00 Weight (Pounds): 160 Objective Gen: NAD. calm. CV: RRR. no rubs or gallop. S1+S2. Resp: RRR. unlabored. equal chest rise. rhonchi. Abd: normoactive BS+. Soft. no TTP. Neuro" alert. interactive Laboratory Tests Test 07/22/19 05:25 White Blood Count 11.8 K/UL (4.8-10.8) H Red Blood Count 3.62 M/UL (4.70-6.10) L Hemoglobin 10.5 G/DL (14.2-18.0) L Hematocrit 30.5 % (42.0-52.0) L Mean Corpuscular Volume 84 FL (80-99) Mean Corpuscular Hemoglobin 28.9 PG (27.0-31.0) Mean Corpuscular Hemoglobin Concent 34.4 G/DL (32.0-36.0) Red Cell Distribution Width 11.2 % (11.6-14.8) L Platelet Count 179 K/UL (150-450) Mean Platelet Volume 9.9 FL (6.5-10.1) Neutrophils (%) (Auto) 64.6 % (45.0-75.0) Lymphocytes (%) (Auto) 27.8 % (20.0-45.0) Monocytes (%) (Auto) 5.5 % (1.0-10.0) Eosinophils (%) (Auto) 1.3 % (0.0-3.0) Basophils (%) (Auto) 0.8 % (0.0-2.0) Sodium Level 144 MMOL/L (136-145) Potassium Level 3.5 MMOL/L (3.5-5.1) Chloride Level 110 MMOL/L (98-107) H Carbon Dioxide Level 23 MMOL/L (21-32) Anion Gap 11 mmol/L (5-15) Blood Urea Nitrogen 9 mg/dL (7-18) Creatinine 0.7 MG/DL (0.55-1.30) Estimat Glomerular Filtration Rate > 60 mL/min (>60) Glucose Level 107 MG/DL (74-106) H Calcium Level 8.7 MG/DL (8.5-10.1) Current Medications Medications (Trade) Dose Ordered Sig/Amy Route PRN Reason Start Time Stop Time Status Last Admin Dose Admin Acetaminophen (Tylenol) 650 mg Q4H PRN ORAL Mild Pain (Pain Scale 1-3) 07/21/19 12:00 08/18/19 00:00 Albuterol/ Ipratropium (Albuterol/ Ipratropium) 3 ml Q4H PRN HHN Shortness of Breath 07/21/19 12:00 07/24/19 00:00 Aspirin (ASA) 325 mg DAILY ORAL 07/22/19 09:00 09/03/19 08:59 07/22/19 09:26 Atorvastatin Calcium (Lipitor) 80 mg BEDTIME ORAL 07/21/19 21:00 10/17/19 20:59 07/21/19 22:34 Cefepime HCl 2 gm/ Dextrose 55 ml @ 110 mls/hr Q12H IV 07/21/19 13:00 07/27/19 12:59 07/22/19 13:00 Clopidogrel Bisulfate (Plavix) 75 mg DAILY ORAL 07/22/19 09:00 08/19/19 08:59 07/22/19 09:26 Dextrose (Dextrose 50%) 25 ml Q30M PRN IV Hypoglycemia 07/21/19 11:30 10/17/19 00:00 Dextrose (Dextrose 50%) 50 ml Q30M PRN IV Hypoglycemia 07/21/19 11:30 10/17/19 00:00 Doxycycline Monohydrate (Doxycycline Monohydrate) 100 mg EVERY 12 HOURS ORAL 07/21/19 21:00 07/27/19 20:59 07/22/19 09:27 Enoxaparin Sodium (Lovenox) 40 mg Q24H SUBQ 07/22/19 09:00 10/17/19 08:59 07/22/19 09:25 Gabapentin (Neurontin) 300 mg THREE TIMES A DAY ORAL 07/21/19 13:00 08/18/19 12:59 07/22/19 17:47 Insulin Aspart (NovoLOG) BEFORE MEALS AND HS SUBQ 07/21/19 11:30 10/17/19 11:29 07/21/19 16:30 Levetiracetam (Keppra) 1,000 mg DAILY ORAL 07/22/19 09:00 08/19/19 08:59 07/22/19 09:26 Memantine (Namenda) 5 mg DAILY ORAL 07/22/19 09:00 08/19/19 08:59 07/22/19 09:26 Metformin HCl (Glucophage) 500 mg TWICE A DAY ORAL 07/21/19 18:00 08/18/19 17:59 07/22/19 17:47 Ondansetron HCl (Zofran) 4 mg Q6H PRN IVP Nausea & Vomiting 07/21/19 12:00 08/18/19 00:00 Pantoprazole (Protonix) 40 mg DAILY ORAL 07/22/19 09:00 08/18/19 08:59 07/22/19 09:25 Temazepam (Restoril) 15 mg BEDTIME PRN ORAL Insomnia 07/21/19 21:00 07/26/19 00:00 Tramadol HCl (Ultram) 50 mg Q6H PRN ORAL For Pain (SCALE >3) 07/21/19 11:45 07/26/19 11:44 07/21/19 22:36 Raza Garzon MD Jul 22, 2019 18:04
--- NOTE | 2019-07-22 19:08 | NUR ---
HAND-OFF: Report given to Kb.
--- NOTE | 2019-07-22 19:28 | NUR ---
NURSE NOTES: Patient in bed, awake and alert x2. On nasal cannula with no signs of distress or SOB. 2 IV lines; both intact and patent. Condom catheter in place and draining well. Bed locked and in lowest position. Bed alarm on. Call light in reach. Will continue to monitor the patient.
[2019-07-22 20:00] VITALS: BP 121/80
[2019-07-22] MEDS: Atorvastatin 80mg tab ORAL SCH (21:31)
[2019-07-23 00:38] VITALS: BP 121/83
[2019-07-23] MEDS: Cefepime HCl 2 GM in D5W 55 ML IV SCH ×2 (02:25→13:59)
[2019-07-23 04:00] VITALS: BP 135/87
[2019-07-23] MEDS: NovoLOG Insulin Flexpen SUBQ SCH ×4 (05:59→21:00)
--- NOTE | 2019-07-23 07:35 | NUR ---
NURSE NOTES: Received report from SOURAV Doshi. Patient in bed and confused. On nasal cannula 2L. No signs of distress. IVs intact, patent, and saline locked. Bed in lowest position with call light in reach. Will continue with plan of care.
--- NOTE | 2019-07-23 07:40 | NUR ---
HAND-OFF: Report given to SOURAV Contreras.
[2019-07-23 08:00] VITALS: BP 123/86
[2019-07-23 08:40] LABS: BASOPHILS % (AUTO) 0.7 % (0.0-2.0); EOSINOPHILS % (AUTO) 1.2 % (0.0-3.0); HEMATOCRIT 33.8 % (42.0-52.0); HEMOGLOBIN 11.5 G/DL (14.2-18.0); MEAN CORPUSCULAR VOLUME 84 FL (80-99); NEUTROPHILS % (AUTO) 64.1 % (45.0-75.0); PLATELET COUNT 246 K/UL (150-450); RED CELL DISTRIBUTION WIDTH 11.4 % (11.6-14.8); WHITE BLOOD COUNT 10.3 K/UL (4.8-10.8)
[2019-07-23 09:14] LABS: ANION GAP 10 mmol/L (5-15); BLOOD UREA NITROGEN 10 mg/dL (7-18); CALCIUM 8.6 MG/DL (8.5-10.1); CARBON DIOXIDE 25 MMOL/L (21-32); CHLORIDE 110 MMOL/L (98-107); CREATININE 0.7 MG/DL (0.55-1.30); POTASSIUM 3.3 MMOL/L (3.5-5.1); SODIUM 145 MMOL/L (136-145)
[2019-07-23] MEDS: Memantine 10mg tab ORAL SCH (09:35)
[2019-07-23] MEDS: Doxycycline Monohydrate 100mg ORAL SCH ×2 (09:35→21:17)
[2019-07-23] MEDS: metFORMIN 500mg tab ORAL SCH ×2 (09:36→17:45)
[2019-07-23] MEDS: Enoxaparin 40mg Inj SUBQ SCH (09:37)
--- NOTE | 2019-07-23 10:31 | NUR ---
*-* INSURANCE *-* ALL AVAILABLE CLINICALS HAVE BEEN FAXED TO: [facility] Ref#[id number] ; Jalyn [phone] ext [phone] fax# [phone]
--- NOTE | 2019-07-23 10:35 | NUR ---
*-* INSURANCE *-* ALL AVAILABLE CLINICALS HAVE BEEN FAXED TO: [facility] Ref#[id number] DANAY; Jalyn [phone] ext [phone] fax# [phone] & [facility] ph#[phone] fax#[phone] Addendum: 07/20/19 at 1131 by WHIT MORGAN CM *-* INSURANCE *-* ALL AVAILABLE CLINICALS HAVE BEEN FAXED TO: [facility] Ref#[id number] DANAY; Jalyn ph [phone] ext [phone] fax# [phone] & [facility] ref# [id number] ph#[phone] fax#[phone]
--- NOTE | 2019-07-23 10:36 | General Progress Note ---
Assessment/Plan Status: stable Assessment/Plan: 59 y/o M admitted to the Hospital due to altered mental status, fever and hypoxemic respiratory failure. # Sepsis Etiology most likely due to UTI Covid-19 NEGATIVE due to SNF residency. Continue Cefepime / and Doxycycline / per ID ID consultation appreciated by Dr. Garzon and defer antibiotic management. Blood cx with G + cocci in clusters reported, likely contaminant. Repeat Bcx negative. HHN as needed Oxygen support Med Surg floor. # Altered mental status Improved after treatment of fever and starting antibiotics Monitor # ZACHARY IVF improved creatinine now. Monitor I/O Avoid nephrotoxins Dose antibiotics by GFR # Hypernatremia Resolved. Chronic problems # IDDM Continue HOMERO A1c #CVA L hemiplegia Supportive care, continue asa and plavix Fall precautions WC at baseline PT and OT as tolerated. # HLD Continue statin # Depression Will start Remeron as he has a poor appetite as well. 15 mg qhs # CODE STATUS DNR # DVT ppx with Enoxaparin # GI ppx with Protonix # Precautions: Fall due to hemiplegia # Lines: Peripheral IV Subjective Date patient seen: Jul 23, 2019 Time patient seen: 10:00 ROS Limited/Unobtainable: No Constitutional: Reports: weakness Allergies: Coded Allergies: No Known Allergies (Unverified , 07/18/19) Subjective Patient feels depressed. Reports poor appetite. Objective Last 24 Hour Vital Signs Date Time Temp Pulse Resp B/P (MAP) Pulse Ox O2 Delivery O2 Flow Rate FiO2 07/23/19 04:00 97.1 110 22 135/87 (103) 96 07/23/19 00:38 98.5 110 18 121/83 (96) 98 07/22/19 20:22 Nasal Cannula 2.0 07/22/19 20:00 98.9 107 18 121/80 (94) 96 07/22/19 19:00 107 18 96 Nasal Cannula 2.0 28 07/22/19 19:00 96 Nasal Cannula 2.0 28 07/22/19 16:00 98.1 103 18 117/71 (86) 95 07/22/19 12:00 97.5 89 20 106/71 (83) 98 Intake and Output 07/22/19 07/23/19 19:00 07:00 Intake Total 480 ml 250 ml Output Total 600 ml 450 ml Balance -120 ml -200 ml Intake Oral 480 ml Other 250 ml Output Urine Total 600 ml 450 ml # Bowel Movements 1 Laboratory Tests 07/23/19 07:50: White Blood Count 10.3, Red Blood Count 4.00L, Hemoglobin 11.5L, Hematocrit 33.8L, Mean Corpuscular Volume 84, Mean Corpuscular Hemoglobin 28.8, Mean Corpuscular Hemoglobin Concent 34.1, Red Cell Distribution Width 11.4L, Platelet Count 246, Mean Platelet Volume 8.8, Neutrophils (%) (Auto) 64.1, Lymphocytes (%) (Auto) 28.0, Monocytes (%) (Auto) 6.0, Eosinophils (%) (Auto) 1.2, Basophils (%) (Auto) 0.7, Sodium Level 145, Potassium Level 3.3L, Chloride Level 110H, Carbon Dioxide Level 25, Anion Gap 10, Blood Urea Nitrogen 10, Creatinine 0.7, Estimat Glomerular Filtration Rate > 60, Glucose Level 116H, Calcium Level 8.6 Height (Feet): 6 Height (Inches): 0.00 Weight (Pounds): 160 General Appearance: WD/WN EENT: PERRL/EOMI Cardiovascular: normal rate Respiratory/Chest: lungs clear Abdomen: soft, no organomegaly Extremities: normal range of motion Neurologic: motor weakness - left hemiplegia Skin: normal pigmentation Vicente Basilio MD Jul 23, 2019 10:36
[2019-07-23 12:00] VITALS: BP 118/78
[2019-07-23 16:00] VITALS: BP 117/73
--- NOTE | 2019-07-23 16:17 | NUR ---
CASE MANAGEMENT:REVIEW SI;UTI. SEPSIS. RESPIRATORY FAILURE. 98.5 110 22 135/87 96% ON 2L NC K+ 3.3 IS; CEFEPIME IV Q12 HRS DUO NEB HHN Q4 HRS PRN DOXYCYCLINE PO Q12 HRS PROTONIX PO QD LOVENOX SUBQ QD PLAVIX PO QD ASA PO QD KEPPRA PO QD MED SURG STATUS DCP;FROM ANAIS PEREZ
--- NOTE | 2019-07-23 19:44 | NUR ---
HAND-OFF: Report given to SOURAV Monk. Rounds done.
--- NOTE | 2019-07-23 19:50 | NUR ---
NURSE NOTES: Received Patient on the bed awake and verbal. No sob and no complain pain. Bed in lowest position, and call light within reach. Will continue monitoring
[2019-07-23 20:00] VITALS: BP 125/81
--- NOTE | 2019-07-23 20:00 | NUR ---
NURSE NOTES: Pt is in bed, awake and verbal. Pt is confused. Vitas stable. Pt has multiple wounds on body, dressing dry and intact. Pt is bedbound and incontinent, pt will be cleaned and repositioned. Fall precaution in place.Bed alarm is on. Bed locked low in position,side rails up and call light within reach. Trainee SOURAV Loving will be assisting in the care of this patient.
--- NOTE | 2019-07-23 20:11 | Infectious Diseases Prog Note ---
Assessment/Plan Assessment/Plan Fever, improving RA/2L NC Leukocytosis, improving Sepsis, improving Cough and congestion CAP Flu swab negative CXR: No acute findings YOSEF-CoV negative CoNS 04/24 BCx, likely contaminant Unlikely UTI UA negative [place] resident--[facility] DM HTN Dyslipidemia Plan: continue Cefepime #6/7 and doxycycline #4/5 07/19 SP levaquion #3 sputum culture monitor temp and CBC monitor resp status isolation precaution f/u repeat bcx DW RN Thank you for this consult. [facility] will continue to follow the patient with you. Subjective Allergies: Coded Allergies: No Known Allergies (Unverified , 07/18/19) Subjective Afebrile. 2l NC. WBC better. cough is better. no chills or sob Objective Vital Signs Last 24 Hour Vital Signs Date Time Temp Pulse Resp B/P (MAP) Pulse Ox O2 Delivery O2 Flow Rate FiO2 07/23/19 19:50 96 Nasal Cannula 2.0 28 07/23/19 19:50 101 18 96 Nasal Cannula 2.0 28 07/23/19 16:00 97.1 107 19 117/73 (88) 97 07/23/19 12:00 97.4 98 18 118/78 (91) 96 07/23/19 09:00 Nasal Cannula 2.0 07/23/19 08:00 98.0 110 20 123/86 (98) 97 07/23/19 04:00 97.1 110 22 135/87 (103) 96 07/23/19 00:38 98.5 110 18 121/83 (96) 98 07/22/19 20:22 Nasal Cannula 2.0 Height (Feet): 6 Height (Inches): 0.00 Weight (Pounds): 160 Objective Gen: NAD. calm. CV: RRR. no rubs or gallop. S1+S2. Resp: RRR. unlabored. equal chest rise. no wheezes Abd: normoactive BS+. Soft. no TTP. Neuro: alert. interactive Microbiology Date/Time Source Procedure Growth Status 07/21/19 06:05 Blood Blood Culture - Preliminary NO GROWTH AFTER 24 HOURS Resulted 07/21/19 06:00 Blood Blood Culture - Preliminary NO GROWTH AFTER 24 HOURS Resulted Laboratory Tests Test 07/23/19 07:50 White Blood Count 10.3 K/UL (4.8-10.8) Red Blood Count 4.00 M/UL (4.70-6.10) L Hemoglobin 11.5 G/DL (14.2-18.0) L Hematocrit 33.8 % (42.0-52.0) L Mean Corpuscular Volume 84 FL (80-99) Mean Corpuscular Hemoglobin 28.8 PG (27.0-31.0) Mean Corpuscular Hemoglobin Concent 34.1 G/DL (32.0-36.0) Red Cell Distribution Width 11.4 % (11.6-14.8) L Platelet Count 246 K/UL (150-450) Mean Platelet Volume 8.8 FL (6.5-10.1) Neutrophils (%) (Auto) 64.1 % (45.0-75.0) Lymphocytes (%) (Auto) 28.0 % (20.0-45.0) Monocytes (%) (Auto) 6.0 % (1.0-10.0) Eosinophils (%) (Auto) 1.2 % (0.0-3.0) Basophils (%) (Auto) 0.7 % (0.0-2.0) Sodium Level 145 MMOL/L (136-145) Potassium Level 3.3 MMOL/L (3.5-5.1) L Chloride Level 110 MMOL/L (98-107) H Carbon Dioxide Level 25 MMOL/L (21-32) Anion Gap 10 mmol/L (5-15) Blood Urea Nitrogen 10 mg/dL (7-18) Creatinine 0.7 MG/DL (0.55-1.30) Estimat Glomerular Filtration Rate > 60 mL/min (>60) Glucose Level 116 MG/DL (74-106) H Calcium Level 8.6 MG/DL (8.5-10.1) Current Medications Medications (Trade) Dose Ordered Sig/Amy Route PRN Reason Start Time Stop Time Status Last Admin Dose Admin Acetaminophen (Tylenol) 650 mg Q4H PRN ORAL Mild Pain (Pain Scale 1-3) 07/21/19 12:00 08/18/19 00:00 Albuterol/ Ipratropium (Albuterol/ Ipratropium) 3 ml Q4H PRN HHN Shortness of Breath 07/21/19 12:00 07/24/19 00:00 Aspirin (ASA) 325 mg DAILY ORAL 07/22/19 09:00 09/03/19 08:59 07/23/19 09:36 Atorvastatin Calcium (Lipitor) 80 mg BEDTIME ORAL 07/21/19 21:00 10/17/19 20:59 07/22/19 21:31 Cefepime HCl 2 gm/ Dextrose 55 ml @ 110 mls/hr Q12H IV 07/21/19 13:00 07/27/19 12:59 07/23/19 13:59 Clopidogrel Bisulfate (Plavix) 75 mg DAILY ORAL 07/22/19 09:00 08/19/19 08:59 07/23/19 09:36 Dextrose (Dextrose 50%) 25 ml Q30M PRN IV Hypoglycemia 07/21/19 11:30 10/17/19 00:00 Dextrose (Dextrose 50%) 50 ml Q30M PRN IV Hypoglycemia 07/21/19 11:30 10/17/19 00:00 Doxycycline Monohydrate (Doxycycline Monohydrate) 100 mg EVERY 12 HOURS ORAL 07/21/19 21:00 07/27/19 20:59 07/23/19 09:35 Enoxaparin Sodium (Lovenox) 40 mg Q24H SUBQ 07/22/19 09:00 10/17/19 08:59 07/23/19 09:37 Gabapentin (Neurontin) 300 mg THREE TIMES A DAY ORAL 07/21/19 13:00 08/18/19 12:59 07/23/19 17:45 Insulin Aspart (NovoLOG) BEFORE MEALS AND HS SUBQ 07/21/19 11:30 10/17/19 11:29 07/21/19 16:30 Levetiracetam (Keppra) 1,000 mg DAILY ORAL 07/22/19 09:00 08/19/19 08:59 07/23/19 09:35 Memantine (Namenda) 5 mg DAILY ORAL 07/22/19 09:00 08/19/19 08:59 07/23/19 09:35 Metformin HCl (Glucophage) 500 mg TWICE A DAY ORAL 07/21/19 18:00 08/18/19 17:59 07/23/19 17:45 Mirtazapine (Remeron) 15 mg BEDTIME ORAL 07/23/19 21:00 10/21/19 20:59 Ondansetron HCl (Zofran) 4 mg Q6H PRN IVP Nausea & Vomiting 07/21/19 12:00 08/18/19 00:00 Pantoprazole (Protonix) 40 mg DAILY ORAL 07/22/19 09:00 08/18/19 08:59 07/23/19 09:36 Temazepam (Restoril) 15 mg BEDTIME PRN ORAL Insomnia 07/21/19 21:00 07/26/19 00:00 Tramadol HCl (Ultram) 50 mg Q6H PRN ORAL For Pain (SCALE >3) 07/21/19 11:45 07/26/19 11:44 07/21/19 22:36 Raza Garzon MD Jul 23, 2019 20:11
[2019-07-23] MEDS: Atorvastatin 80mg tab ORAL SCH (21:16)
[2019-07-24] VITALS: BP 128/84
[2019-07-24] MEDS: Cefepime HCl 2 GM in D5W 55 ML IV SCH ×2 (00:56→13:40)
--- NOTE | 2019-07-24 02:10 | NUR ---
NURSE NOTES: patient is on the bed awake and verbal. no complain of pain, no sob , and all needs are met. Patient have multiple wound; keeping it clean and dry, help reposition the patient . Bed is in the lower postion , call light within reach. we will keep monitoring the patient
[2019-07-24 04:00] VITALS: BP 120/97
--- NOTE | 2019-07-24 05:30 | NUR ---
NURSE NOTES: patient wound dressing changed , reposition every 2hr, kept it dry and clean. No complain of pain, vitals are stable. and no sob. All meds are given and patient tolerated well. All needs are met. Bed in the lower position, call light with in rte Addendum: 07/24/19 at 0614 by TERRI GALEAS RN Unfinished note, discard the above note
--- NOTE | 2019-07-24 05:30 | NUR ---
NURSE NOTES: patient wound dressing changed , reposition every 2hr, kept it dry and clean. No complain of pain, vitals are stable. and no sob. All meds are given and patient tolerated well. All needs are met. Bed in the lower position, call light with in reach. we will keep monitoring.
[2019-07-24] MEDS: NovoLOG Insulin Flexpen SUBQ SCH ×4 (06:09→21:00)
--- NOTE | 2019-07-24 07:19 | NUR ---
HAND-OFF: Report given to SOURAV Contreras. Addendum: 07/24/19 at 0721 by TERRI GALEAS RN informed the patient is high fall risk
--- NOTE | 2019-07-24 07:23 | NUR ---
NURSE NOTES: Received report from SOURAV Monk and SOURAV Loving. Patient confused. Currently on room air, no signs of distress or labored breathing. IVs intact, patent, and saline locked. Bed in lowest position with call light in reach. Side rails up x3 with bed alarm on. Will continue with plan of care.
[2019-07-24 08:00] VITALS: BP 120/71
[2019-07-24 08:25] LABS: BASOPHILS % (AUTO) 0.9 % (0.0-2.0); EOSINOPHILS % (AUTO) 1.1 % (0.0-3.0); HEMOGLOBIN 11.9 G/DL (14.2-18.0); LYMPHOCYTES % (AUTO) 27.6 % (20.0-45.0); MEAN CORPUSCULAR VOLUME 84 FL (80-99); MONOCYTES % (AUTO) 6.5 % (1.0-10.0); NEUTROPHILS % (AUTO) 63.8 % (45.0-75.0); PLATELET COUNT 296 K/UL (150-450); RED BLOOD COUNT 4.16 M/UL (4.70-6.10); RED CELL DISTRIBUTION WIDTH 11.5 % (11.6-14.8); WHITE BLOOD COUNT 9.5 K/UL (4.8-10.8)
[2019-07-24 08:53] LABS: ANION GAP 14 mmol/L (5-15); BLOOD UREA NITROGEN 11 mg/dL (7-18); CALCIUM 8.7 MG/DL (8.5-10.1); CARBON DIOXIDE 20 MMOL/L (21-32); CHLORIDE 109 MMOL/L (98-107); CREATININE 0.7 MG/DL (0.55-1.30); POTASSIUM 3.2 MMOL/L (3.5-5.1); SODIUM 143 MMOL/L (136-145)
[2019-07-24] MEDS: Enoxaparin 40mg Inj SUBQ SCH (09:36)
[2019-07-24] MEDS: traMADol 50mg tab ORAL PRN ×2 (09:37→21:47)
[2019-07-24] MEDS: Memantine 10mg tab ORAL SCH (09:37)
[2019-07-24] MEDS: metFORMIN 500mg tab ORAL SCH ×2 (09:38→17:30)
[2019-07-24] MEDS: Doxycycline Monohydrate 100mg ORAL SCH ×2 (09:38→21:46)
[2019-07-24] MEDS ORDERED: Tubing IV Secondary IV ONE (10:27)
[2019-07-24] MEDS ORDERED: 1/2 NS 1000ml IV ONE (10:27)
--- NOTE | 2019-07-24 11:41 | NUR ---
NURSE NOTES: Notified Dr. Basilio of 3.2 Potassium. Awaiting response/orders.
[2019-07-24 12:00] VITALS: BP 127/81
--- NOTE | 2019-07-24 12:00 | NUR ---
NURSE NOTES: Orders received from Dr. Basilio.
--- NOTE | 2019-07-24 12:17 | Infectious Diseases Prog Note ---
Assessment/Plan Assessment/Plan Fever, Sp RA/2L NC Leukocytosis, Sp Sepsis, Sp Cough and congestion CAP Flu swab negative CXR: No acute findings YOSEF-CoV negative CoNS 04/24 BCx, likely contaminant Unlikely UTI UA negative [place] resident--[facility] DM HTN Dyslipidemia Plan: continue Cefepime #7/ and doxycycline #5/5 07/19 SP levaquion #3 sputum culture monitor temp and CBC monitor resp status isolation precaution f/u repeat bcx DW RN Thank you for this consult. [facility] will continue to follow the patient with you. Subjective Allergies: Coded Allergies: No Known Allergies (Unverified , 07/18/19) Subjective afebrile Objective Vital Signs Last 24 Hour Vital Signs Date Time Temp Pulse Resp B/P (MAP) Pulse Ox O2 Delivery O2 Flow Rate FiO2 07/24/19 09:00 Nasal Cannula 2.0 07/24/19 08:00 97.4 100 20 120/71 (87) 98 07/24/19 04:00 97.2 108 20 120/97 (105) 95 07/24/19 00:00 97.8 118 19 128/84 (99) 95 07/23/19 21:00 Nasal Cannula 2.0 07/23/19 20:00 97.4 107 20 125/81 (96) 96 07/23/19 19:50 96 Nasal Cannula 2.0 28 07/23/19 19:50 101 18 96 Nasal Cannula 2.0 28 07/23/19 16:00 97.1 107 19 117/73 (88) 97 Height (Feet): 6 Height (Inches): 0.00 Weight (Pounds): 160 HEENT: anicteric Respiratory/Chest: normal breath sounds Cardiovascular: regularly irregular Abdomen: no organomegaly Laboratory Tests Test 07/24/19 06:35 07/24/19 07:15 White Blood Count 9.5 K/UL (4.8-10.8) Red Blood Count 4.16 M/UL (4.70-6.10) L Hemoglobin 11.9 G/DL (14.2-18.0) L Hematocrit 35.0 % (42.0-52.0) L Mean Corpuscular Volume 84 FL (80-99) Mean Corpuscular Hemoglobin 28.5 PG (27.0-31.0) Mean Corpuscular Hemoglobin Concent 33.9 G/DL (32.0-36.0) Red Cell Distribution Width 11.5 % (11.6-14.8) L Platelet Count 296 K/UL (150-450) Mean Platelet Volume 7.3 FL (6.5-10.1) Neutrophils (%) (Auto) 63.8 % (45.0-75.0) Lymphocytes (%) (Auto) 27.6 % (20.0-45.0) Monocytes (%) (Auto) 6.5 % (1.0-10.0) Eosinophils (%) (Auto) 1.1 % (0.0-3.0) Basophils (%) (Auto) 0.9 % (0.0-2.0) Sodium Level 143 MMOL/L (136-145) Potassium Level 3.2 MMOL/L (3.5-5.1) L Chloride Level 109 MMOL/L (98-107) H Carbon Dioxide Level 20 MMOL/L (21-32) L Anion Gap 14 mmol/L (5-15) Blood Urea Nitrogen 11 mg/dL (7-18) Creatinine 0.7 MG/DL (0.55-1.30) Estimat Glomerular Filtration Rate > 60 mL/min (>60) Glucose Level 115 MG/DL (74-106) H Calcium Level 8.7 MG/DL (8.5-10.1) Current Medications Medications (Trade) Dose Ordered Sig/Amy Route PRN Reason Start Time Stop Time Status Last Admin Dose Admin Acetaminophen (Tylenol) 650 mg Q4H PRN ORAL Mild Pain (Pain Scale 1-3) 07/21/19 12:00 08/18/19 00:00 Aspirin (ASA) 325 mg DAILY ORAL 07/22/19 09:00 09/03/19 08:59 07/24/19 09:37 Atorvastatin Calcium (Lipitor) 80 mg BEDTIME ORAL 07/21/19 21:00 10/17/19 20:59 07/23/19 21:16 Cefepime HCl 2 gm/ Dextrose 55 ml @ 110 mls/hr Q12H IV 07/21/19 13:00 07/27/19 12:59 07/24/19 00:56 Clopidogrel Bisulfate (Plavix) 75 mg DAILY ORAL 07/22/19 09:00 08/19/19 08:59 07/24/19 09:38 Dextrose (Dextrose 50%) 25 ml Q30M PRN IV Hypoglycemia 07/21/19 11:30 10/17/19 00:00 Dextrose (Dextrose 50%) 50 ml Q30M PRN IV Hypoglycemia 07/21/19 11:30 10/17/19 00:00 Doxycycline Monohydrate (Doxycycline Monohydrate) 100 mg EVERY 12 HOURS ORAL 07/21/19 21:00 07/27/19 20:59 07/24/19 09:38 Enoxaparin Sodium (Lovenox) 40 mg Q24H SUBQ 07/22/19 09:00 10/17/19 08:59 07/24/19 09:36 Gabapentin (Neurontin) 300 mg THREE TIMES A DAY ORAL 07/21/19 13:00 08/18/19 12:59 07/24/19 09:37 Insulin Aspart (NovoLOG) BEFORE MEALS AND HS SUBQ 07/21/19 11:30 10/17/19 11:29 07/21/19 16:30 Levetiracetam (Keppra) 1,000 mg DAILY ORAL 07/22/19 09:00 08/19/19 08:59 07/24/19 09:38 Memantine (Namenda) 5 mg DAILY ORAL 07/22/19 09:00 08/19/19 08:59 07/24/19 09:37 Metformin HCl (Glucophage) 500 mg TWICE A DAY ORAL 07/21/19 18:00 08/18/19 17:59 07/24/19 09:38 Mirtazapine (Remeron) 15 mg BEDTIME ORAL 07/23/19 21:00 10/21/19 20:59 07/23/19 21:17 Ondansetron HCl (Zofran) 4 mg Q6H PRN IVP Nausea & Vomiting 07/21/19 12:00 08/18/19 00:00 Pantoprazole (Protonix) 40 mg DAILY ORAL 07/22/19 09:00 08/18/19 08:59 07/24/19 09:37 Temazepam (Restoril) 15 mg BEDTIME PRN ORAL Insomnia 07/21/19 21:00 07/26/19 00:00 07/24/19 00:48 Tramadol HCl (Ultram) 50 mg Q6H PRN ORAL For Pain (SCALE >3) 07/21/19 11:45 07/26/19 11:44 07/24/19 09:37 Pedro Hanson MD Jul 24, 2019 12:17
--- NOTE | 2019-07-24 13:33 | General Progress Note ---
Assessment/Plan Status: stable Assessment/Plan: 59 y/o M admitted to the Hospital due to altered mental status, fever and hypoxemic respiratory failure. # Sepsis Etiology most likely due to UTI Covid-19 NEGATIVE due to SNF residency. Continue Cefepime 10/25 and Doxycycline / per ID ID consultation appreciated by Dr. Garzon ( ID team ) consult and antibiotic management. HHN as needed Oxygen support Med Surg floor. # Altered mental status Improved after treatment of fever and starting antibiotics Monitor # ZACHARY IVF improved creatinine now. Monitor I/O Avoid nephrotoxins Dose antibiotics by GFR # Hypernatremia Resolved. Chronic problems # IDDM Continue HOMERO A1c #CVA L hemiplegia Supportive care, continue asa and plavix Fall precautions WC at baseline PT and OT as tolerated. # HLD Continue statin # Depression Remeron as he has a poor appetite as well. 15 mg qhs # Chronic pain syndrome Decrease Tramadol to 25 mg dose due to somnolence. # CODE STATUS DNR # DVT ppx with Enoxaparin # GI ppx with Protonix # Precautions: Fall due to hemiplegia # Lines: Peripheral IV Subjective Date patient seen: Jul 24, 2019 Time patient seen: 12:00 ROS Limited/Unobtainable: Yes Allergies: Coded Allergies: No Known Allergies (Unverified , 07/18/19) All Systems: reviewed and negative except above Subjective Patient feels depressed. Reports poor appetite. Somnolent today after getting Tramadol 50 mg dose. Objective Last 24 Hour Vital Signs Date Time Temp Pulse Resp B/P (MAP) Pulse Ox O2 Delivery O2 Flow Rate FiO2 07/24/19 12:00 97.5 103 20 127/81 (96) 99 07/24/19 09:00 Room Air 07/24/19 08:00 97.4 100 20 120/71 (87) 98 07/24/19 04:00 97.2 108 20 120/97 (105) 95 07/24/19 00:00 97.8 118 19 128/84 (99) 95 07/23/19 21:00 Nasal Cannula 2.0 07/23/19 20:00 97.4 107 20 125/81 (96) 96 07/23/19 19:50 96 Nasal Cannula 2.0 28 07/23/19 19:50 101 18 96 Nasal Cannula 2.0 28 07/23/19 16:00 97.1 107 19 117/73 (88) 97 Intake and Output 07/23/19 07/24/19 19:00 07:00 Intake Total 55 ml 55 ml Output Total 1000 ml 600 ml Balance -945 ml -545 ml IV Total 55 ml 55 ml Output Urine Total 1000 ml 600 ml # Voids 1 # Bowel Movements 2 Laboratory Tests 07/24/19 06:35: White Blood Count 9.5, Red Blood Count 4.16L, Hemoglobin 11.9L, Hematocrit 35.0L , Mean Corpuscular Volume 84, Mean Corpuscular Hemoglobin 28.5, Mean Corpuscular Hemoglobin Concent 33.9, Red Cell Distribution Width 11.5L, Platelet Count 296, Mean Platelet Volume 7.3, Neutrophils (%) (Auto) 63.8, Lymphocytes (%) (Auto) 27.6, Monocytes (%) (Auto) 6.5, Eosinophils (%) (Auto) 1.1, Basophils (%) (Auto) 0.9 07/24/19 07:15: Sodium Level 143, Potassium Level 3.2L, Chloride Level 109H, Carbon Dioxide Level 20L, Anion Gap 14, Blood Urea Nitrogen 11, Creatinine 0.7, Estimat Glomerular Filtration Rate > 60, Glucose Level 115H, Calcium Level 8.7 Height (Feet): 6 Height (Inches): 0.00 Weight (Pounds): 160 General Appearance: WD/WN EENT: PERRL/EOMI Neck: non-tender Cardiovascular: normal rate Respiratory/Chest: lungs clear Abdomen: non tender Neurologic: abnormal gait, motor weakness, other - left hemiplegia Vicente Basilio MD Jul 24, 2019 13:33
[2019-07-24 16:00] VITALS: BP 125/87
--- NOTE | 2019-07-24 19:22 | NUR ---
HAND-OFF: Report given to SOURAV Monk and SOURAV Loivng. Rounds done.
--- NOTE | 2019-07-24 19:30 | NUR ---
NURSE NOTES: Receive patient in bed in a stable condition; awake, verbal, and vital stable. Patient is confused. Patient has multiple wounds on body; dressing kept clean, dry and intact. Fall precaution in place; Bed locked and in the lower position, bed alarm is on ,side rails up and call light within reach.
[2019-07-24 20:00] VITALS: BP 155/99
[2019-07-24] MEDS: Atorvastatin 80mg tab ORAL SCH (21:46)
[2019-07-25] VITALS: BP 158/100
--- NOTE | 2019-07-25 02:45 | NUR ---
NURSE NOTES: Pt is in bed awake,alert and verbal. no complain of pain, no sob, vital is stable. all meds given and all needs are met. bed in lower position, bed locked and call light within reach. we will keep monitoring.
[2019-07-25 04:00] VITALS: BP 137/98
[2019-07-25] MEDS: NovoLOG Insulin Flexpen SUBQ SCH ×4 (06:30→21:00)
[2019-07-25 07:04] LABS: BASOPHILS % (AUTO) 1.1 % (0.0-2.0); EOSINOPHILS % (AUTO) 1.2 % (0.0-3.0); HEMATOCRIT 37.5 % (42.0-52.0); HEMOGLOBIN 12.8 G/DL (14.2-18.0); LYMPHOCYTES % (AUTO) 34.2 % (20.0-45.0); MEAN CORPUSCULAR VOLUME 84 FL (80-99); MONOCYTES % (AUTO) 8.5 % (1.0-10.0); NEUTROPHILS % (AUTO) 55.1 % (45.0-75.0); PLATELET COUNT 355 K/UL (150-450); RED BLOOD COUNT 4.47 M/UL (4.70-6.10); RED CELL DISTRIBUTION WIDTH 11.1 % (11.6-14.8); WHITE BLOOD COUNT 8.4 K/UL (4.8-10.8)
--- NOTE | 2019-07-25 07:15 | NUR ---
HAND-OFF: Report given to SOURAV torres. Informed the patient is high fall risk.
--- NOTE | 2019-07-25 07:19 | NUR ---
NURSE NOTES: Received report from Fabienne RN and Lacho RN. Patient sleeping. Iv intact, patent, and saline locked. On room air, no signs of distress or labored breathing. Bed in lowest position with side rails up x3. Will continue with plan of care.
[2019-07-25 07:53] LABS: ANION GAP 10 mmol/L (5-15); BLOOD UREA NITROGEN 11 mg/dL (7-18); CALCIUM 8.9 MG/DL (8.5-10.1); CARBON DIOXIDE 26 MMOL/L (21-32); CHLORIDE 107 MMOL/L (98-107); CREATININE 0.7 MG/DL (0.55-1.30); PHOSPHORUS 2.9 MG/DL (2.5-4.9); POTASSIUM 3.8 MMOL/L (3.5-5.1); SODIUM 143 MMOL/L (136-145)
[2019-07-25 08:00] VITALS: BP 132/95
[2019-07-25] MEDS ORDERED: Tubing IV Secondary IV ONE (09:38)
[2019-07-25] MEDS: metFORMIN 500mg tab ORAL SCH ×2 (09:40→18:07)
[2019-07-25] MEDS: Memantine 10mg tab ORAL SCH (09:41)
[2019-07-25] MEDS: Enoxaparin 40mg Inj SUBQ SCH (09:42)
--- NOTE | 2019-07-25 11:45 | Discharge Summary ---
Discharge Summary Hospital Course Date of Admission Jul 18, 2019 at 23:42 Date of Discharge 07/25/19 Admitting Diagnosis Sepsis, respiratory failure HPI Hussain Matthews is a 59 year old male who was admitted on Jul 18, 2019 at 23:42 for Sepsis,Respiratory Failure Consultations Infectious disease Procedures rule out covid 19 Hospital Course 59 y/o M admitted to the Hospital due to altered mental status, fever and hypoxemic respiratory failure. # Sepsis Etiology most likely due to UTI Covid-19 NEGATIVE due to SNF residency. Continue Cefepime 10/25 and Doxycycline 08/23 per ID completed ID consultation appreciated by Dr. Garzon ( ID team ) consult and antibiotic management. The patient has completed course for antibiotic and will stop it at this time. # Altered mental status Improved after treatment of fever and starting antibiotics Monitor # ZACHARY IVF improved creatinine now. Monitor I/O Avoid nephrotoxins # Hypernatremia Resolved. Chronic problems # IDDM Continue HOMERO A1c #CVA L hemiplegia Supportive care, continue asa and plavix Fall precautions WC at baseline PT and OT as tolerated. # HLD Continue statin # Depression Remeron as he has a poor appetite as well. 15 mg qhs was started and is a NEW medication. # Chronic pain syndrome Tramadol to 25 mg was used for pain and will decide at SNF if is needed. # CODE STATUS DNR # DVT ppx with Enoxaparin # GI ppx with Protonix # Precautions: Fall due to hemiplegia # Lines: Peripheral IV Discharge Medications New Medications: Mirtazapine* (Mirtazapine*) 15 Mg Tablet 15 MG ORAL BEDTIME for 30 Days, #30 TAB Continued Medications: Acetaminophen* (Acetaminophen 325MG Tablet*) 325 Mg Tablet 325 MG ORAL Q4H PRN for For Pain, TAB Amitriptyline HCl (Elavil*) 75 Mg Tablet 150 MG ORAL BEDTIME for depression, TAB Aspirin* (Aspirin*) 325 Mg Tablet 325 MG ORAL DAILY for cva, TAB Atorvastatin Calcium* (Lipitor*) 80 Mg Tablet 80 MG ORAL BEDTIME for hypercholesterolemia, TAB Clopidogrel Bisulfate* (Plavix*) 75 Mg Tablet 75 MG ORAL DAILY for cva, TAB Enoxaparin* (Lovenox*) 40 Mg/0.4 Ml Inj 40 MG SUBQ DAILY for CVA Gabapentin* (Gabapentin*) 300 Mg Capsule 300 MG ORAL THREE TIMES A DAY for neuralgia, CAP 0 Refills Insulin Regular, Human (Humulin R) 100 Unit/1 Ml Vial 0 SUBQ for DM, VIAL Levetiracetam (Keppra) 1,000 Mg Tablet 1000 MG ORAL DAILY for sz, #30 TAB 0 Refills Memantine Hcl* (Namenda*) 5 Mg Tablet 5 MG ORAL DAILY for dementia, TAB Metformin Hcl* (Metformin Hcl*) 500 Mg Tablet 500 MG ORAL TWICE A DAY for DM, TAB Metoprolol/Hydrochlorothiazide (Lopressor Hct 50-25 Tablet) 1 Each Tablet 1 TAB ORAL DAILY for HTN, TAB Pantoprazole* (Protonix*) 40 Mg Tablet.dr 40 MG ORAL DAILY for GERD, TAB Temazepam* (Restoril*) 15 Mg Capsule 15 MG ORAL BEDTIME PRN for Insomnia, CAP Discontinued Medications: Tramadol Hcl* (Ultram*) 50 Mg Tablet 50 MG ORAL Q6H PRN for For Pain, #12 TAB 0 Refills Discharge Condition Upon Discharge: stable Discharge Vital Signs Last Vital Signs Date Time Temp Pulse Resp B/P (MAP) Pulse Ox O2 Delivery O2 Flow Rate FiO2 07/25/19 04:00 98.1 111 20 137/98 (111) 97 07/24/19 21:00 Room Air 07/24/19 19:58 21 07/24/19 09:00 Discharge Disposition [facility] Discharge Diagnoses: (1) UTI (urinary tract infection) (2) Dehydration (3) ARF (acute renal failure) (4) Respiratory failure with hypoxia (5) Suspected COVID-19 virus infection (6) Respiratory failure (7) Sepsis Vicente Basilio MD Jul 25, 2019 11:45
[2019-07-25 12:00] VITALS: BP 112/84
[2019-07-25 16:00] VITALS: BP 118/81
--- NOTE | 2019-07-25 19:10 | NUR ---
HAND-OFF: Report given to SOURAV Monk and SOURAV Loving. Rounds done.
--- NOTE | 2019-07-25 19:20 | NUR ---
NURSE NOTES: Receive patient in bed in a stable condition; asleep, and vital stable. Patient is confused. Patient has multiple wounds on body; dressing kept clean, dry and intact. Fall precaution in place; Bed locked and in the lower position, bed alarm is on ,side rails up and call light within reach. We will keep monitoring
[2019-07-25 20:00] VITALS: BP 131/94
[2019-07-25] MEDS: traMADol 50mg tab ORAL PRN (21:22)
[2019-07-25] MEDS: Atorvastatin 80mg tab ORAL SCH (21:22)
[2019-07-26] VITALS: BP_SYST 120; BP_SYST 127; BP_DIAS 81; BP_DIAS 82
--- NOTE | 2019-07-26 02:00 | NUR ---
NURSE NOTES: Pt is in bed awake,alert and verbal. no complain of pain, no sob, vital is stable. All meds given including pain and sleeping medication. All needs are met. Bed in lower position and locked, call light within reach. we will keep monitoring.
[2019-07-26 04:00] VITALS: BP 138/75
[2019-07-26] MEDS: NovoLOG Insulin Flexpen SUBQ SCH ×2 (05:44→11:18)
--- NOTE | 2019-07-26 07:15 | NUR ---
HAND-OFF: Report given to SOURAV Toro.Informed the patient is high fall risk.
--- NOTE | 2019-07-26 07:16 | NUR ---
NURSE NOTES: Received patient in bed. Awake, alert x2. On room air, respirations unlabored. NGT in place, feeding on hold for procedure today. IV in the Right arm, site is intact and running IVF as ordered. Bed rails up x3, bed at the lowest position, bed locked, bed alarm on. Bilateral soft-wrist restraints, hands are warm and normal color for ethnicity. Patient is a high fall risk d/t restraints. CN and CARDIAC SPECIALIST made aware. Patient oriented to room and use of call light with return demonstration. Bed alarm on high sensitivity. Addendum: 07/26/19 at 0754 by Cortez Leslie RN ENTERED FOR WRONG PATIENT.
[2019-07-26 08:00] VITALS: BP 115/77
[2019-07-26] MEDS: metFORMIN 500mg tab ORAL SCH (09:29)
[2019-07-26] MEDS: Memantine 10mg tab ORAL SCH (09:29)
[2019-07-26] MEDS: Enoxaparin 40mg Inj SUBQ SCH (09:35)
--- NOTE | 2019-07-26 10:11 | NUR ---
DISCHARGE PLANNING PATIENT HAS BEEN REFERRED BACK TO: [facility] P: [phone] F: [phone]
--- NOTE | 2019-07-26 10:50 | NUR ---
RD ASSESSMENT & RECOMMENDATIONS SEE CARE ACTIVITY FOR COMPLETE ASSESSMENT DAILY ESTIMATED NEEDS: Needs based on Wound, sepsis, 69kg 25-35 kcals/kg 7481-2600 total kcals 1.25-2 g protein/kg 86-138 g total protein 25-30 mL/kg 3290-1995 total fluid mLs NUTRITION DIAGNOSIS: Increased kcal and pro needs r/t sepsis, wound healing, and wasting as evidenced by tmax 101.8, elev WBC, multiple wounds, refer to WC eval, w/ BL LE moderate wasting. CURRENT DIET: Low Na, ms ground PO DIET RECOMMENDATIONS: With fair po intake-> Rec LIBERALIZED Regular diet (texture per SOUND RECORDIST) ADDITIONAL RECOMMENDATIONS: 1) Add Ensure TID w/ meals; Rec Glucerna w/ elev BG 2) Per SNF: 69 inches tall, 152 lbs 3) 1:1 feeds as able 4) No artificial feeds per POLST 5) Wound care: add KATIE BID + Vit C 250mg BID + MVI w/ Min qd
--- NOTE | 2019-07-26 11:21 | Discharge Summary ---
Discharge Summary Hospital Course Date of Admission Jul 18, 2019 at 23:42 Date of Discharge 07/26/19 Admitting Diagnosis Sepsis, respiratory failure HPI Hussain Matthews is a 59 year old male who was admitted on Jul 18, 2019 at 23:42 for Sepsis,Respiratory Failure Hospital Course 59 y/o M admitted to the Hospital due to altered mental status, fever and hypoxemic respiratory failure. # Sepsis Etiology most likely due to UTI Covid-19 NEGATIVE due to SNF residency. Continue Cefepime 10/25 and Doxycycline / per ID completed ID consultation appreciated by Dr. Garzon ( ID team ) consult and antibiotic management. The patient has completed course for antibiotic and will stop it at this time. Can return to SNF # Altered mental status Improved after treatment of fever and starting antibiotics Monitor. Patient has a flat affect. # ZACHARY IVF improved creatinine now. Monitor I/O Avoid nephrotoxins # Hypernatremia Resolved. Chronic problems # IDDM Continue HOMERO A1c #CVA L hemiplegia Supportive care, continue asa and plavix Fall precautions WC at baseline PT and OT as tolerated. # HLD Continue statin # Depression Remeron as he has a poor appetite as well. 15 mg qhs was started and is a NEW medication. # Chronic pain syndrome Tramadol to 25 mg was used for pain and will decide at SNF if is needed. # CODE STATUS DNR # DVT ppx with Enoxaparin # Discharge planning to SNF [facility] today. Discharge Medications New Medications: Mirtazapine* (Mirtazapine*) 15 Mg Tablet 15 MG ORAL BEDTIME for 30 Days, #30 TAB Continued Medications: Acetaminophen* (Acetaminophen 325MG Tablet*) 325 Mg Tablet 325 MG ORAL Q4H PRN for For Pain, TAB Amitriptyline HCl (Elavil*) 75 Mg Tablet 150 MG ORAL BEDTIME for depression, TAB Aspirin* (Aspirin*) 325 Mg Tablet 325 MG ORAL DAILY for cva, TAB Atorvastatin Calcium* (Lipitor*) 80 Mg Tablet 80 MG ORAL BEDTIME for hypercholesterolemia, TAB Clopidogrel Bisulfate* (Plavix*) 75 Mg Tablet 75 MG ORAL DAILY for cva, TAB Enoxaparin* (Lovenox*) 40 Mg/0.4 Ml Inj 40 MG SUBQ DAILY for CVA Gabapentin* (Gabapentin*) 300 Mg Capsule 300 MG ORAL THREE TIMES A DAY for neuralgia, CAP 0 Refills Insulin Regular, Human (Humulin R) 100 Unit/1 Ml Vial 0 SUBQ for DM, VIAL Levetiracetam (Keppra) 1,000 Mg Tablet 1000 MG ORAL DAILY for sz, #30 TAB 0 Refills Memantine Hcl* (Namenda*) 5 Mg Tablet 5 MG ORAL DAILY for dementia, TAB Metformin Hcl* (Metformin Hcl*) 500 Mg Tablet 500 MG ORAL TWICE A DAY for DM, TAB Metoprolol/Hydrochlorothiazide (Lopressor Hct 50-25 Tablet) 1 Each Tablet 1 TAB ORAL DAILY for HTN, TAB Pantoprazole* (Protonix*) 40 Mg Tablet.dr 40 MG ORAL DAILY for GERD, TAB Temazepam* (Restoril*) 15 Mg Capsule 15 MG ORAL BEDTIME PRN for Insomnia, CAP Discontinued Medications: Tramadol Hcl* (Ultram*) 50 Mg Tablet 50 MG ORAL Q6H PRN for For Pain, #12 TAB 0 Refills Discharge Condition Upon Discharge: improving Discharge Vital Signs Last Vital Signs Date Time Temp Pulse Resp B/P (MAP) Pulse Ox O2 Delivery O2 Flow Rate FiO2 07/26/19 09:00 Room Air 07/26/19 08:00 97.1 106 21 115/77 (90) 95 07/24/19 19:58 21 07/24/19 09:00 Discharge Disposition Patient was discharged to [facility] Discharge Diagnoses: (1) HCAP (healthcare-associated pneumonia) (2) ARF (acute renal failure) (3) Sepsis (4) UTI (urinary tract infection) Vicente Basilio MD Jul 26, 2019 11:21
[2019-07-26 11:52] VITALS: BP 135/87
--- NOTE | 2019-07-26 14:49 | NUR ---
*-*DISCHARGE PLANNED*-* PATIENT HAS BEEN ACCEPTED AND WILL BE DISCHARGED BACK TO: [facility]SE TO NURSE REPORT P: [phone] ROOM# 105.B [facility] SET FOR 1:30PM, [id number] SPOKE WITH GLENN PLACED A CALL TO PATIENTS [facility], WHO IS IN AGREEMENT WITH DISCHARGE AND TRANSPORTATION. Addendum: 07/26/19 at 1619 by YUNIOR LEZAMA CM *-*DISCHARGE PLANNED*-* PATIENT HAS BEEN ACCEPTED AND WILL BE DISCHARGED BACK TO: [facility]SE [facility] NURSE REPORT P: [phone] ROOM# 105.B [facility] SET FOR 1:45PM, [id number] SPOKE WITH GLENN PLACED A CALL TO PATIENTS [facility] SOLOR[facility], WHO IS IN AGREEMENT WITH DISCHARGE AND TRANSPORTATION
--- NOTE | 2019-07-26 15:00 | NUR ---
NURSE NOTES: Patient d/c back to [facility]. Report given to Carlitos. Patient belongings list verified. ID wristband removed, IVs site removed. Patient stable, VSS.
--- NOTE | 2019-07-26 15:40 | NUR ---
*-* INSURANCE *-* ALL AVAILABLE CLINICALS HAVE BEEN FAXED TO: [facility] Ref#[id number] ; Jalyn [phone] ext [phone] fax# [phone] & [facility] ref# [id number] #[phone] fax#[phone]
--- NOTE | 2019-07-27 11:10 | NUR ---
*-* INSURANCE *-* DISCHARGE SUMMARY HAS BEEN FAXED TO: [employer] Ref#[id number] DANAY; Jalyn [phone] ext [phone] fax# [phone] Addendum: 07/27/19 at 1111 by WHIT MORGAN CM & [facility] ref# [id number] #[phone] fax#[phone]
== END 2019-07-26 15:00 | DRG 720 ==
LOC: EDBD 21:47 → EMR 22:10 → 2W 23:42 → EDBEDREQ 07-19 13:07 → 2W 07-19 13:28 → UNDOADMIN 07-19 13:28 → 2W 07-20 02:35 → 4E 07-21 11:14
DX: A41.9 Sepsis, unspecified organism (principal); N17.9 Acute kidney failure, unspecified; J18.9 Pneumonia, unspecified organism; J96.91 Respiratory failure, unspecified with hypoxia; E87.0 Hyperosmolality and hypernatremia; N39.0 Urinary tract infection, site not specified; E11.9 Type 2 diabetes mellitus without complications; Z79.4 Long term (current) use of insulin; Z79.02 Long term (current) use of antithrombotics/antiplatelets; Z79.82 Long term (current) use of aspirin; I69.354 Hemiplegia and hemiparesis following cerebral infarction affecting left non-dominant side; G89.4 Chronic pain syndrome; Z66 Do not resuscitate
CPT/HCPCS: 36415; 36600; 71045; 80048; 80053; 80299; 81003; 82803; 82962; 83036; 83605; 83735; 84100; 85025; 86710; 87040; 87081; 87181; 87635; 93005; 94664; 96361; 96365; 96368; 99291; J1815; J7030; J8499

== ENCOUNTER 2019-12-19 20:04 | Emergency (ER) | payer MEDICAID ==
[~2019-12-19] VITALS: Ht 175.3 cm; Wt 59.0 kg
[~2019-12-19 20:04] MED LIST: ACETAMINOPHEN325 M1 ORAL; AMITRIPTYLINE75 MG ORAL; ASPIRIN325 MG ORAL; ATORVASTATIN CA80 MG ORAL; GABAPENTIN300 MG ORAL; HUMULIN R100 UNIT/1 SUBQ; KEPPRA1000 MG ORAL; LOPRESSOR HCT1 EAC3 ORAL; LOVENOX10 M4 SUBQ; METFORMIN HCL500 M1 ORAL; NAMENDA5 MG ORAL; PLAVIX75 MG ORAL; PROTONIX40 MG ORAL; RESTORIL15 MG ORAL; TRAMADOL HCL50 MG ORAL
[2019-12-19] MEDS ORDERED: HYDROcodone/Acetamin 5/325 tab ORAL ONE (20:30)
--- NOTE | 2019-12-19 20:31 | Diagnostic Imaging Report ---
EXAM: CT Head Without Intravenous Contrast CLINICAL HISTORY: FALL TECHNIQUE: Axial computed tomography images of the head/brain without intravenous contrast. CTDI is 53.4 mGy and DLP is 992.1 mGy-cm. One or more of the following dose reduction techniques were used: automated exposure control, adjustment of the mA and/or kV according to patient size, use of iterative reconstruction technique. COMPARISON: None. FINDINGS: Brain: Small vessel disease of aging. 1.5 cm area of chronic lacunar infarction right basal ganglia. 1 cm chronic lacunar infarction left basal ganglia. No hemorrhage. Ventricles: Prominence of the ventricular system, cortical sulci, basilar cisterns, compatible with age related atrophy. Bones/joints: Calvarium is unremarkable. No acute fracture. Soft tissues: Unremarkable. Sinuses: Visualized sinuses are unremarkable. Mastoid air cells: Mastoid air cells are well pneumatized to IMPRESSION: 1. Age-related changes. 2. Bilateral chronic lacunar infarcts. 3. No acute intracranial pathology is detected. 4. If there is concern for etiology such as early acute lacunar infarcts, magnetic resonance imaging of the brain with diffusion-weighted sequences should be performed for follow-up.
--- NOTE | 2019-12-19 20:40 | NUR ---
ED Nurse Note: Rrecieved pt BIBA from [facility] for s/p fall out of bed, pt is awake, alert and oriented x 4, states side rail to bed came off while he was attempting to turn, pt states hit his head, denies k.o or any other injuries, small hematoma noted on right side of head, pt placed on cardiac monitoring, will resume care as ordered.
[2019-12-19 21:05] VITALS: BP 119/86
[2019-12-19 21:10] VITALS: BP 111/72
--- NOTE | 2019-12-19 21:10 | NUR ---
ER DISCHARGE NOTE: Patient is cleared to be discharged per ERMD, pt is aox4, on room air, with stable vital signs. pt was given dc instructions, pt was able to verbalize understanding, pt id band removed without complications. pt is able to ambulate with steady gait. pt took all belongings. placed call to facility and gave report to IZABELLA HELM.
--- NOTE | 2019-12-19 21:11 | Emergency Room Report ---
History of Present Illness General Chief Complaint: Multiple Trauma/Fall Source: Patient, Medical Record Present Illness HPI 59-year-old male presents the ED for head injury. Brought in by EMS from halfway facility. Had witnessed fall today from his bed and hit his head. Denies LOC. Notes pain to the right side of his head. Dull, 8 out of 10 , nonradiating. Denies photophobia or blurry vision. Denies nausea or vomiting. No other aggravating relieving factors. 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 GENERAL: No Patient History Past Medical History: DM, HTN, GERD, CVA/TIA Past Surgical History: none Pertinent Family History: none Social History: Denies: smoking, alcohol use, drug use Immunizations: UTD Reviewed Nursing Documentation: PMH: Agreed; PSxH: Agreed Nursing Documentation-PMH Hx Cardiac Problems: Yes Hx Hypertension: Yes - hyperlipedmia Hx Diabetes: Yes - type 2 Hx Cancer: No Hx Gastrointestinal Problems: Yes - gerd Hx Neurological Problems: Yes - ams, insomnia, idiopathic peripheral autonomic neuropthy Hx Cerebrovascular Accident: Yes - L side weakness Hx Seizures: Yes Hx Epilepsy: Yes Hx Paralysis: Yes - L side weakness Review of Systems All Other Systems: negative except mentioned in HPI Physical Exam Vital Signs Date Time Temp Pulse Resp B/P (MAP) Pulse Ox O2 Delivery O2 Flow Rate FiO2 12/19/19 20:02 98.2 82 18 111/72 (85) 98 Room Air Sp02 EP Interpretation: reviewed, normal General Appearance: no apparent distress, alert, GCS 15, non-toxic Head: normocephalic Eyes: bilateral eye normal inspection, bilateral eye PERRL ENT: normal ENT inspection Neck: normal inspection Respiratory: normal inspection Cardiovascular #1: normal inspection Gastrointestinal: normal inspection Rectal: deferred Genitourinary: no CVA tenderness Musculoskeletal: normal inspection Neurologic: alert, motor strength/tone normal, oriented x3, sensory intact, responsive, speech normal Psychiatric: judgement/insight normal, memory normal, mood/affect normal, no suicidal/homicidal ideation Skin: no rash Lymphatic: normal inspection Medical Decision Making Diagnostic Impression: Primary Impression: Head injury Qualified Codes: S09.90XA - Unspecified injury of head, initial encounter ER Course Hospital Course 59-year-old M presents ED complaining of headache s/p fall from bed Differential diagnoses include: skull fx, intracranial injury, concussion Clinical course Patient placed on stretcher. After initial history and physical I ordered CT head and pain medications CT head shows no acute process. patient is alert oriented x3 at his baseline. I discussed with PMD Dr. Basilio. Agrees that patient is safe for discharge back to halfway facility. Diagnosis - head injury Stable and discharged to SNF. Followup with PMD. Return to ED if symptoms recur or worsen CT/MRI/US Diagnostic Results CT/MRI/US Diagnostic Results : Imaging Test Ordered: CT Head Impression Final Report EXAM: CT Head Without Intravenous Contrast CLINICAL HISTORY: FALL TECHNIQUE: Axial computed tomography images of the head/brain without intravenous contrast. CTDI is 53.4 mGy and DLP is 992.1 mGy-cm. One or more of the following dose reduction techniques were used: automated exposure control, adjustment of the mA and/or kV according to patient size, use of iterative reconstruction technique. COMPARISON: None. FINDINGS: Brain: Small vessel disease of aging. 1.5 cm area of chronic lacunar infarction right basal ganglia. 1 cm chronic lacunar infarction left basal ganglia. No hemorrhage. Ventricles: Prominence of the ventricular system, cortical sulci, basilar cisterns, compatible with age related atrophy. Bones/joints: Calvarium is unremarkable. No acute fracture. Soft tissues: Unremarkable. Sinuses: Visualized sinuses are unremarkable. Mastoid air cells: Mastoid air cells are well pneumatized to IMPRESSION: 1. Age-related changes. 2. Bilateral chronic lacunar infarcts. 3. No acute intracranial pathology is detected. 4. If there is concern for etiology such as early acute lacunar infarcts, magnetic resonance imaging of the brain with diffusion-weighted sequences should be performed for follow-up. Last Vital Signs Date Time Temp Pulse Resp B/P (MAP) Pulse Ox O2 Delivery O2 Flow Rate FiO2 8/30/20 20:02 98.2 82 18 111/72 (85) 98 Room Air Status: improved Disposition: SNF Condition: Stable Patient Instructions: Head Injury, Adult, [id number] Brent Champagne MD Dec 19, 2019 21:11
== END 2019-12-19 21:10 ==
LOC: EDBD 20:04 → EMR 20:29
DX: S09.90XA Unspecified injury of head, initial encounter (principal); W06.XXXA Fall from bed, initial encounter; Y92.9 Unspecified place or not applicable; E11.9 Type 2 diabetes mellitus without complications; I10 Essential (primary) hypertension; K21.9 Gastro-esophageal reflux disease without esophagitis; E78.5 Hyperlipidemia, unspecified; G81.94 Hemiplegia, unspecified affecting left nondominant side; G40.909 Epilepsy, unspecified, not intractable, without status epilepticus; G90.9 Disorder of the autonomic nervous system, unspecified
CPT/HCPCS: 70450; Z7502; 99284